=== PATIENT | male | born 1960 | race Caucasian/White ===

== ENCOUNTER 2017-10-06 18:18 | Inpatient (IN) | payer MEDICAID ==
[~2017-10-06] VITALS: Ht 182.9 cm; Wt 67.3 kg
[~2017-10-06 18:18] MED LIST: NO HOME MEDS
[2017-10-06] MEDS ORDERED: ondansetron/PF 4mg/2ml inj IV ONE (18:30)
[2017-10-06] MEDS ORDERED: normal saline 1000ML IV soln IVB ONE (18:30)
[2017-10-06] MEDS ORDERED: morphine 4 MG/ML inj SYRINge IV ONE (18:35)
[2017-10-06 18:49] LABS: BASOPHILS % (AUTO) 0.1 % (0-1); EOSINOPHILS % (AUTO) 0 % (0-6); HEMATOCRIT 39.2 % (42.0-52.0); HEMOGLOBIN 13.6 g/dl (14.0-17.9); LYMPHOCYTES # (AUTO) 0.9 X10'3 (1.1-4.8); LYMPHOCYTES % (AUTO) 3.7 % (21-51); MEAN CORPUSCULAR HEMOGLOBIN 31.4 PG (27.0-31.0); MEAN CORPUSCULAR HGB CONC 34.6 % (33.0-36.5); MEAN CORPUSCULAR VOLUME 90.8 FL (78-98); MONOCYTES % (AUTO) 4.4 % (2-12); NEUTROPHILS # (AUTO) 21.2 X10'3 (1.8-7.7); NEUTROPHILS % (AUTO) 91.8 % (42-75); PLATELET COUNT 178 X10'3 (140-440); RED BLOOD COUNT 4.32 X10'6 (4.70-6.10); RED CELL DISTRIBUTION WIDTH 14.2 % (11.5-14.5); WHITE BLOOD COUNT 23.1 X10'3 (4.5-11.0)
[2017-10-06 19:04] LABS: ALANINE AMINOTRANSFERASE 79 U/L (12-78); ALBUMIN 3.1 G/DL (3.4-5.0); ALBUMIN/GLOBULIN RATIO 0.9 (1.1-1.5); ALKALINE PHOSPHATASE 58 IU/L (46-116); ANION GAP 5 (8-16); ASPARTATE AMINO TRANSFERASE 38 U/L (10-37); BILIRUBIN,TOTAL 0.6 MG/DL (0.1-1.0); BLOOD UREA NITROGEN 16 MG/DL (7-18); BUN/CREATININE RATIO 17.2 (5.4-32.0); CALCIUM 8.4 MG/DL (8.5-10.1); CHLORIDE 101 MMOL/L (99-107); CREATININE 0.93 MG/DL (0.60-1.10); GLUCOSE 100 MG/DL (70-104); LIPASE 72 U/L (73-393); POTASSIUM 4.2 MMOL/L (3.5-5.1); SODIUM 133 MMOL/L (135-145); TOTAL CARBON DIOXIDE 27.1 MMOL/L (24-32); TOTAL PROTEIN 6.7 G/DL (6.4-8.2); eGFR 84 ML/MIN
[2017-10-06] MEDS ORDERED: normal saline 1000ML IV soln IV ONE (19:10)
[2017-10-06] MEDS ORDERED: piperacillin/tazo 3.375gm/50ml 50 ML IV ONE (19:10)
[2017-10-06] MEDS ORDERED: vancomycin/NS 1 GM ADD-VANTAGE 250 ML IV ONE (19:10)
[2017-10-06 19:12] LABS: BANDS% (MANUAL) 2 % (0-10); LARGE PLATELETS FEW; LYMPHOCYTES % (MANUAL) 4 % (21-51); MONOCYTES % (MANUAL) 4 % (2-12); NEUTROPHILS % (MANUAL) 90 % (42-75); PLATELET ESTIMATE NORMAL; TOTAL CELLS COUNTED 100; TOXIC GRANULATION 2+
[2017-10-06 19:13] LABS: TOXIC VACUOLATION FEW
[2017-10-06 20:05] LABS: CLARITY,URINE CLEAR (Clear); COLOR,URINE YELLOW (Yellow); GLUCOSE, URINE NEGATIVE (Neg); KETONES,URINE NEGATIVE (Neg); LEUKOCYTE ESTERASE ,URINE NEGATIVE (Neg); NITRITES, URINE NEGATIVE (Neg); OCCULT BLOOD,URINE NEGATIVE (Neg); PROTEIN,URINE NEGATIVE (Neg); UROBILINOGEN,URINE 0.2 E.U/dL (0.2-1.0)
[2017-10-06 20:18] LABS: UA COLLECTION TYPE CLN CATCH MIDSTREAM
[2017-10-06] MEDS ORDERED: acetaminophen 325mg tablet PO STA (20:23)
[2017-10-06] MEDS: normal saline 500ml IV soln 1,000 ML IV SCH ×4 (20:59→23:50)
[2017-10-06] MEDS: NORepinephrine 8mg/ 250ml NS 250 ML IV SCH ×2 (21:25→21:53)
[2017-10-06] MEDS ORDERED: NORepinephrine 8mg/ 250ml NS 250 ML IV PRN (21:47)
[2017-10-06] MEDS ORDERED: morphine 4 MG/ML inj SYRINge IV PRN (21:50)
[2017-10-06] MEDS ORDERED: potassium Cl 40MEQ/NS 500ml 500 ML IV PRN ×2 (21:50)
[2017-10-06] MEDS: K, MAG and/or Phos replacement - Verify level? MC SCH (21:50)
[2017-10-06] MEDS ORDERED: potassium Cl 20 mEq SR tablet PO PRN ×2 (21:50)
[2017-10-06] MEDS ORDERED: acetaminophen 325mg tablet PO PRN (21:50)
[2017-10-06] MEDS: normal saline 1000ml 1,000 ML IV SCH ×2 (22:07→22:49)
[2017-10-06] MEDS ORDERED: vancomycin/NS 1 GM ADD-VANTAGE 250 ML X 1 DOSE IV ONE (22:10)
[2017-10-06] MEDS ORDERED: vancomycin/NS 1 GM ADD-VANTAGE 250 ML X 1 DOSE IV SCH (22:12)
[2017-10-06 22:15] LABS: INR 1.1 INR; PARTIAL THROMBOPLASTIN TIME 32 SECONDS (22-32); PROTHROMBIN TIME 11.5 SECONDS (9.0-12.0)
[2017-10-06] MEDS: morphine 4 MG/ML inj SYRINge IV PRN (23:12)
[2017-10-07] VITALS (24 sets, daily range): BP systolic 84–115; BP diastolic 43–80
[2017-10-07 00:31] LABS: OXYGEN SATURATION (MIXED VEN) 70.7 % (60-80); PO2 MIXED VENOUS (TEMP COR) 39.5 mmHg (35-46)
[2017-10-07] MEDS: normal saline 500ml IV soln 1,000 ML IV SCH ×2 (00:50→01:50)
[2017-10-07] MEDS: normal saline 1000ml 1,000 ML IV SCH (01:02)
[2017-10-07] MEDS ORDERED: piperacillin/tazo 3.375gm/50ml 50 ML IV ONE (02:55)
[2017-10-07] MEDS: piperacillin/tazo 3.375gm/50ml 50 ML IV SCH ×4 (03:04→19:49)
[2017-10-07] MEDS ORDERED: vancomycin/NS 1 GM ADD-VANTAGE 250 ML X 1 DOSE IV SCH (04:00)
[2017-10-07 04:06] LABS: BASOPHILS % (AUTO) 0.2 % (0-1); EOSINOPHILS % (AUTO) 0 % (0-6); HEMATOCRIT 36.4 % (42.0-52.0); HEMOGLOBIN 12.5 g/dl (14.0-17.9); LYMPHOCYTES # (AUTO) 1.8 X10'3 (1.1-4.8); LYMPHOCYTES % (AUTO) 9.7 % (21-51); MEAN CORPUSCULAR HEMOGLOBIN 31.3 PG (27.0-31.0); MEAN CORPUSCULAR HGB CONC 34.4 % (33.0-36.5); MEAN CORPUSCULAR VOLUME 91.1 FL (78-98); MEAN PLATELET VOLUME 8.8 FL (7.4-10.4); MONOCYTES # (AUTO) 1.1 X10'3 (0-0.9); MONOCYTES % (AUTO) 6.2 % (2-12); NEUTROPHILS # (AUTO) 15.4 X10'3 (1.8-7.7); NEUTROPHILS % (AUTO) 83.9 % (42-75); PLATELET COUNT 166 X10'3 (140-440); RED BLOOD COUNT 3.99 X10'6 (4.70-6.10); RED CELL DISTRIBUTION WIDTH 14.5 % (11.5-14.5); WHITE BLOOD COUNT 18.3 X10'3 (4.5-11.0)
[2017-10-07 04:22] LABS: ALANINE AMINOTRANSFERASE 65 U/L (12-78); ALBUMIN 2.4 G/DL (3.4-5.0); ALBUMIN/GLOBULIN RATIO 0.8 (1.1-1.5); ALKALINE PHOSPHATASE 49 IU/L (46-116); ANION GAP 7 (8-16); ASPARTATE AMINO TRANSFERASE 32 U/L (10-37); BILIRUBIN,TOTAL 0.5 MG/DL (0.1-1.0); BLOOD UREA NITROGEN 12 MG/DL (7-18); CALCIUM 6.9 MG/DL (8.5-10.1); CHLORIDE 108 MMOL/L (99-107); CREATININE 0.75 MG/DL (0.60-1.10); GLUCOSE 104 MG/DL (70-104); POTASSIUM 3.9 MMOL/L (3.5-5.1); SODIUM 137 MMOL/L (135-145); TOTAL CARBON DIOXIDE 21.6 MMOL/L (24-32); TOTAL PROTEIN 5.5 G/DL (6.4-8.2); TROPONIN I 0.05 NG/ML (0.0-0.05); eGFR > 90 ML/MIN
[2017-10-07] MEDS: diatr meglu/diatrizoate 30ml oral sol.-(3 dose) bottle PO SCH ×3 (06:57→12:52)
[2017-10-07] MEDS: acetaminophen 325mg tablet PO PRN ×2 (07:11→18:55)
[2017-10-07] MEDS: ondansetron/PF 4mg/2ml inj IV PRN ×2 (07:11→16:18)
[2017-10-07] MEDS: pantoprazole 40 MG vial IV SCH (07:11)
[2017-10-07] MEDS: enoxaparin 40mg/0.4ml syringe SUBCUT SCH (07:12)
[2017-10-07] MEDS: K, MAG and/or Phos replacement - Verify level? MC SCH (08:28)
[2017-10-07] MEDS ORDERED: total parenteral nutrition 1 EACH, calcium gluconate 12 MEQ, magnesium 16 MEQ, sodium 8... IV SCH ×14 (09:25)
[2017-10-07] MEDS: sodium bicarbonate (8.4%) inj. 50 MEQ in sodium chloride 0.45% 1,000 ML IV SCH ×3 (11:32→23:26)
[2017-10-07] MEDS: vancomycin/NS 1 GM ADD-VANTAGE 250 ML IV SCH ×2 (15:37→23:26)
[2017-10-07] MEDS ORDERED: Dextrose 10%-water IV solution 1,000 ML IV PRN (15:47)
[2017-10-07] MEDS ORDERED: magnesium 4gm in 100ml NS 100 ML IV PRN (15:50)
[2017-10-07] MEDS ORDERED: magnesium 2GM in 50ml NS 50 ML IV PRN (15:50)
[2017-10-07] MEDS: DOPamine 400mg/D5W 250ml 250 ML IV SCH (16:12)
[2017-10-07 16:42] LABS: ALANINE AMINOTRANSFERASE 66 U/L (12-78); ALBUMIN 2.6 G/DL (3.4-5.0); ALBUMIN/GLOBULIN RATIO 0.8 (1.1-1.5); ALKALINE PHOSPHATASE 48 IU/L (46-116); ANION GAP 7 (8-16); ASPARTATE AMINO TRANSFERASE 35 U/L (10-37); BILIRUBIN,TOTAL 0.5 MG/DL (0.1-1.0); BLOOD UREA NITROGEN 9 MG/DL (7-18); BUN/CREATININE RATIO 12.3 (5.4-32.0); CALCIUM 7.7 MG/DL (8.5-10.1); CHLORIDE 108 MMOL/L (99-107); CREATININE 0.73 MG/DL (0.60-1.10); GLUCOSE 85 MG/DL (70-104); MAGNESIUM 1.8 MG/DL (1.5-2.4); PHOSPHORUS 2.4 MG/DL (2.3-4.5); PREALBUMIN 12.4 MG/DL (19-36); SODIUM 139 MMOL/L (135-145); TOTAL CARBON DIOXIDE 23.6 MMOL/L (24-32); TRIGLYCERIDES 50 MG/DL (20-135); TROPONIN I < 0.04 NG/ML (0.0-0.05); eGFR > 90 ML/MIN
[2017-10-07] MEDS: lactobacillus rhamnosus 10,000 MMU CELLS/CAPSULE PO SCH (19:48)
[2017-10-07] MEDS: fat emulsion IV 100 ML, MVI, adult No.4 with vit. K 5 ML, Trace element-5 inj. 0.5 ML i... IV SCH ×4 (19:54)
[2017-10-07 23:03] LABS: URINE AMPHETAMINE SCREEN POSITIVE (Neg); URINE BARBITUATE SCREEN NEGATIVE (Neg); URINE BENZODIAZEPINES SCREEN NEGATIVE (Neg); URINE CANNABINOID SCREEN NEGATIVE (Neg); URINE COCAINE SCREEN NEGATIVE (Neg); URINE METHADONE SCREEN NEGATIVE (Neg); URINE OPIATE SCREEN NEGATIVE (Neg); URINE PHENCYCLIDINE SCREEN NEGATIVE (Neg)
[2017-10-07] MEDS ORDERED: SUMAtriptan 25 MG tablet PO ONE (23:55)
[2017-10-08] VITALS (24 sets, daily range): BP systolic 82–109; BP diastolic 43–67
[2017-10-08] MEDS: piperacillin/tazo 3.375gm/50ml 50 ML IV SCH ×4 (01:30→19:58)
[2017-10-08 03:08] LABS: BASOPHILS # (AUTO) 0.1 X10'3 (0-0.2); BASOPHILS % (AUTO) 0.6 % (0-1); EOSINOPHILS # (AUTO) 0.8 X10'3 (0-0.9); HEMATOCRIT 37.3 % (42.0-52.0); HEMOGLOBIN 12.9 g/dl (14.0-17.9); LYMPHOCYTES # (AUTO) 1.2 X10'3 (1.1-4.8); LYMPHOCYTES % (AUTO) 10.3 % (21-51); MEAN CORPUSCULAR HEMOGLOBIN 31.5 PG (27.0-31.0); MEAN CORPUSCULAR HGB CONC 34.7 % (33.0-36.5); MEAN CORPUSCULAR VOLUME 90.8 FL (78-98); MEAN PLATELET VOLUME 8.9 FL (7.4-10.4); MONOCYTES # (AUTO) 1.2 X10'3 (0-0.9); MONOCYTES % (AUTO) 10.9 % (2-12); NEUTROPHILS # (AUTO) 8.1 X10'3 (1.8-7.7); NEUTROPHILS % (AUTO) 71.2 % (42-75); PLATELET COUNT 144 X10'3 (140-440); RED BLOOD COUNT 4.11 X10'6 (4.70-6.10); RED CELL DISTRIBUTION WIDTH 14.3 % (11.5-14.5); WHITE BLOOD COUNT 11.4 X10'3 (4.5-11.0)
[2017-10-08] MEDS ORDERED: SUMAtriptan 25 MG tablet PO ONE ×2 (03:10→20:05)
[2017-10-08 03:30] LABS: ALANINE AMINOTRANSFERASE 63 U/L (12-78); ALBUMIN 2.7 G/DL (3.4-5.0); ALBUMIN/GLOBULIN RATIO 0.8 (1.1-1.5); ALKALINE PHOSPHATASE 48 IU/L (46-116); ANION GAP 7 (8-16); ASPARTATE AMINO TRANSFERASE 37 U/L (10-37); BILIRUBIN,TOTAL 0.6 MG/DL (0.1-1.0); BLOOD UREA NITROGEN 10 MG/DL (7-18); CALCIUM 7.7 MG/DL (8.5-10.1); CHLORIDE 107 MMOL/L (99-107); CREATININE 0.77 MG/DL (0.60-1.10); GLUCOSE 118 MG/DL (70-104); MAGNESIUM 1.8 MG/DL (1.5-2.4); PHOSPHORUS 2.4 MG/DL (2.3-4.5); POTASSIUM 3.7 MMOL/L (3.5-5.1); SODIUM 139 MMOL/L (135-145); TOTAL CARBON DIOXIDE 24.8 MMOL/L (24-32); TOTAL PROTEIN 6.2 G/DL (6.4-8.2); eGFR > 90 ML/MIN
[2017-10-08] MEDS: acetaminophen 325mg tablet PO PRN (04:09)
[2017-10-08] MEDS: vancomycin/NS 1 GM ADD-VANTAGE 250 ML IV SCH (06:51)
[2017-10-08] MEDS: DOPamine 400mg/D5W 250ml 250 ML IV SCH (06:51)
[2017-10-08] MEDS: lactobacillus rhamnosus 10,000 MMU CELLS/CAPSULE PO SCH ×2 (07:19→19:58)
[2017-10-08] MEDS: pantoprazole 40 MG vial IV SCH (07:19)
[2017-10-08] MEDS: ondansetron/PF 4mg/2ml inj IV PRN (07:19)
[2017-10-08] MEDS: enoxaparin 40mg/0.4ml syringe SUBCUT SCH (07:20)
[2017-10-08] MEDS: K, MAG and/or Phos replacement - Verify level? MC SCH (07:45)
[2017-10-08] MEDS ORDERED: VANCOMYCIN LEVEL IV NR (14:30)
[2017-10-08] MEDS: vancomycin inj 1,250 MG in normal saline 250ml IV soln 250 ML IV SCH (16:29)
[2017-10-08] MEDS: morphine 4 MG/ML inj SYRINge IV PRN (19:58)
[2017-10-08] MEDS: fat emulsion IV 100 ML, MVI, adult No.4 with vit. K 5 ML, Trace element-5 inj. 0.5 ML i... IV SCH ×4 (19:59)
[2017-10-08] MEDS ORDERED: SUMAtriptan 25 MG tablet PO PRN (20:05)
[2017-10-08] MEDS: NORepinephrine 8mg/ 250ml NS 250 ML IV SCH (21:25)
[2017-10-09] VITALS (30 sets, daily range): BP systolic 91–112; BP diastolic 52–74
[2017-10-09] MEDS: piperacillin/tazo 3.375gm/50ml 50 ML IV SCH ×4 (01:36→20:42)
[2017-10-09 03:59] LABS: BASOPHILS % (AUTO) 0.4 % (0-1); EOSINOPHILS # (AUTO) 0.8 X10'3 (0-0.9); EOSINOPHILS % (AUTO) 10.6 % (0-6); HEMATOCRIT 35.6 % (42.0-52.0); HEMOGLOBIN 12.2 g/dl (14.0-17.9); LYMPHOCYTES # (AUTO) 1.3 X10'3 (1.1-4.8); LYMPHOCYTES % (AUTO) 17.2 % (21-51); MEAN CORPUSCULAR HEMOGLOBIN 31.2 PG (27.0-31.0); MEAN CORPUSCULAR HGB CONC 34.1 % (33.0-36.5); MEAN CORPUSCULAR VOLUME 91.5 FL (78-98); MEAN PLATELET VOLUME 8.7 FL (7.4-10.4); MONOCYTES # (AUTO) 0.7 X10'3 (0-0.9); MONOCYTES % (AUTO) 9.7 % (2-12); NEUTROPHILS # (AUTO) 4.7 X10'3 (1.8-7.7); NEUTROPHILS % (AUTO) 62.1 % (42-75); PLATELET COUNT 154 X10'3 (140-440); RED BLOOD COUNT 3.89 X10'6 (4.70-6.10); RED CELL DISTRIBUTION WIDTH 13.8 % (11.5-14.5); WHITE BLOOD COUNT 7.6 X10'3 (4.5-11.0)
[2017-10-09 04:14] LABS: ALANINE AMINOTRANSFERASE 54 U/L (12-78); ALBUMIN 2.4 G/DL (3.4-5.0); ALBUMIN/GLOBULIN RATIO 0.6 (1.1-1.5); ALKALINE PHOSPHATASE 39 IU/L (46-116); ANION GAP 7 (8-16); ASPARTATE AMINO TRANSFERASE 28 U/L (10-37); BILIRUBIN,TOTAL 0.4 MG/DL (0.1-1.0); BLOOD UREA NITROGEN 12 MG/DL (7-18); BUN/CREATININE RATIO 19.7 (5.4-32.0); CALCIUM 7.9 MG/DL (8.5-10.1); CHLORIDE 109 MMOL/L (99-107); CREATININE 0.61 MG/DL (0.60-1.10); GLUCOSE 124 MG/DL (70-104); PHOSPHORUS 2.4 MG/DL (2.3-4.5); POTASSIUM 3.6 MMOL/L (3.5-5.1); SODIUM 144 MMOL/L (135-145); TOTAL CARBON DIOXIDE 28.2 MMOL/L (24-32); TOTAL PROTEIN 6.1 G/DL (6.4-8.2); eGFR > 90 ML/MIN
[2017-10-09] MEDS: fat emulsion IV 100 ML, MVI, adult No.4 with vit. K 5 ML, Trace element-5 inj. 0.5 ML i... IV SCH ×8 (05:34→18:47)
[2017-10-09] MEDS: DOPamine 400mg/D5W 250ml 250 ML IV SCH (05:34)
[2017-10-09] MEDS: K, MAG and/or Phos replacement - Verify level? MC SCH (08:00)
[2017-10-09] MEDS: lactobacillus rhamnosus 10,000 MMU CELLS/CAPSULE PO SCH ×2 (09:23→20:42)
[2017-10-09] MEDS: pantoprazole 40 MG vial IV SCH (09:23)
[2017-10-09] MEDS: enoxaparin 40mg/0.4ml syringe SUBCUT SCH (09:24)
[2017-10-09] MEDS: vancomycin inj 1,250 MG in normal saline 250ml IV soln 250 ML IV SCH ×5 (10:35→23:31)
[2017-10-09] MEDS ORDERED: VANCOMYCIN LEVEL IV NR (15:30)
[2017-10-09] MEDS ORDERED: ipratropium/albuterol 3ml nebule NEB PRN (23:00)
[2017-10-09] MEDS ORDERED: ipratropium/albuterol 3ml nebule NEB SCH (23:00)
[2017-10-10] VITALS (16 sets, daily range): BP systolic 87–114; BP diastolic 50–80
[2017-10-10] MEDS: piperacillin/tazo 3.375gm/50ml 50 ML IV SCH ×4 (02:00→20:56)
[2017-10-10 02:35] LABS: BASOPHILS % (AUTO) 0.5 % (0-1); EOSINOPHILS % (AUTO) 12.2 % (0-6); HEMATOCRIT 33.9 % (42.0-52.0); HEMOGLOBIN 11.5 g/dl (14.0-17.9); LYMPHOCYTES # (AUTO) 1.5 X10'3 (1.1-4.8); LYMPHOCYTES % (AUTO) 17.5 % (21-51); MEAN CORPUSCULAR HEMOGLOBIN 31.1 PG (27.0-31.0); MEAN CORPUSCULAR HGB CONC 34.1 % (33.0-36.5); MEAN CORPUSCULAR VOLUME 91.1 FL (78-98); MEAN PLATELET VOLUME 8.6 FL (7.4-10.4); MONOCYTES # (AUTO) 0.9 X10'3 (0-0.9); MONOCYTES % (AUTO) 10.9 % (2-12); NEUTROPHILS % (AUTO) 58.9 % (42-75); PLATELET COUNT 166 X10'3 (140-440); RED BLOOD COUNT 3.72 X10'6 (4.70-6.10); WHITE BLOOD COUNT 8.5 X10'3 (4.5-11.0)
[2017-10-10 02:52] LABS: ALANINE AMINOTRANSFERASE 58 U/L (12-78); ALBUMIN 2.4 G/DL (3.4-5.0); ALBUMIN/GLOBULIN RATIO 0.7 (1.1-1.5); ALKALINE PHOSPHATASE 40 IU/L (46-116); ANION GAP 8 (8-16); ASPARTATE AMINO TRANSFERASE 40 U/L (10-37); BILIRUBIN,TOTAL 0.4 MG/DL (0.1-1.0); BLOOD UREA NITROGEN 12 MG/DL (7-18); BUN/CREATININE RATIO 18.5 (5.4-32.0); CALCIUM 7.9 MG/DL (8.5-10.1); CHLORIDE 111 MMOL/L (99-107); CREATININE 0.65 MG/DL (0.60-1.10); GLUCOSE 123 MG/DL (70-104); POTASSIUM 3.6 MMOL/L (3.5-5.1); SODIUM 144 MMOL/L (135-145); TOTAL CARBON DIOXIDE 25.1 MMOL/L (24-32); TOTAL PROTEIN 5.9 G/DL (6.4-8.2); eGFR > 90 ML/MIN
[2017-10-10] MEDS: fat emulsion IV 100 ML, MVI, adult No.4 with vit. K 5 ML, Trace element-5 inj. 0.5 ML i... IV SCH ×4 (06:09)
[2017-10-10] MEDS: K, MAG and/or Phos replacement - Verify level? MC SCH (08:00)
[2017-10-10] MEDS: lactobacillus rhamnosus 10,000 MMU CELLS/CAPSULE PO SCH ×2 (08:21→20:56)
[2017-10-10] MEDS: pantoprazole 40 MG vial IV SCH (08:22)
[2017-10-10] MEDS: enoxaparin 40mg/0.4ml syringe SUBCUT SCH (08:31)
[2017-10-10] MEDS: vancomycin inj 1,250 MG in normal saline 250ml IV soln 250 ML IV SCH ×2 (09:20→17:00)
[2017-10-11] VITALS: BP 93/53
[2017-10-11] MEDS: vancomycin inj 1,250 MG in normal saline 250ml IV soln 250 ML IV SCH ×2 (00:18→10:47)
[2017-10-11] MEDS: piperacillin/tazo 3.375gm/50ml 50 ML IV SCH ×4 (01:58→19:33)
[2017-10-11 05:42] LABS: BASOPHILS # (AUTO) 0.1 X10'3 (0-0.2); BASOPHILS % (AUTO) 0.9 % (0-1); EOSINOPHILS # (AUTO) 1.3 X10'3 (0-0.9); EOSINOPHILS % (AUTO) 13.4 % (0-6); HEMOGLOBIN 12.5 g/dl (14.0-17.9); LYMPHOCYTES # (AUTO) 1.9 X10'3 (1.1-4.8); LYMPHOCYTES % (AUTO) 19.8 % (21-51); MEAN CORPUSCULAR HEMOGLOBIN 31.8 PG (27.0-31.0); MEAN CORPUSCULAR HGB CONC 34.8 % (33.0-36.5); MEAN CORPUSCULAR VOLUME 91.5 FL (78-98); MEAN PLATELET VOLUME 9.4 FL (7.4-10.4); MONOCYTES # (AUTO) 1.1 X10'3 (0-0.9); MONOCYTES % (AUTO) 11.7 % (2-12); NEUTROPHILS # (AUTO) 5.2 X10'3 (1.8-7.7); NEUTROPHILS % (AUTO) 54.2 % (42-75); PLATELET COUNT 191 X10'3 (140-440); RED BLOOD COUNT 3.94 X10'6 (4.70-6.10); RED CELL DISTRIBUTION WIDTH 14.1 % (11.5-14.5); WHITE BLOOD COUNT 9.6 X10'3 (4.5-11.0)
[2017-10-11 06:23] LABS: ALANINE AMINOTRANSFERASE 78 U/L (12-78); ALBUMIN 2.6 G/DL (3.4-5.0); ALBUMIN/GLOBULIN RATIO 0.7 (1.1-1.5); ALKALINE PHOSPHATASE 46 IU/L (46-116); ANION GAP 9 (8-16); ASPARTATE AMINO TRANSFERASE 58 U/L (10-37); BILIRUBIN,TOTAL 0.3 MG/DL (0.1-1.0); BLOOD UREA NITROGEN 11 MG/DL (7-18); BUN/CREATININE RATIO 15.3 (5.4-32.0); CALCIUM 8.2 MG/DL (8.5-10.1); CHLORIDE 110 MMOL/L (99-107); CREATININE 0.72 MG/DL (0.60-1.10); GLUCOSE 94 MG/DL (70-104); POTASSIUM 3.8 MMOL/L (3.5-5.1); SODIUM 142 MMOL/L (135-145); TOTAL CARBON DIOXIDE 23.5 MMOL/L (24-32); TOTAL PROTEIN 6.3 G/DL (6.4-8.2); eGFR > 90 ML/MIN
[2017-10-11 07:26] VITALS: BP 104/45
[2017-10-11] MEDS: K, MAG and/or Phos replacement - Verify level? MC SCH (08:00)
[2017-10-11] MEDS: lactobacillus rhamnosus 10,000 MMU CELLS/CAPSULE PO SCH ×2 (08:25→19:33)
[2017-10-11] MEDS: enoxaparin 40mg/0.4ml syringe SUBCUT SCH (08:26)
[2017-10-11 11:58] VITALS: BP 93/52
[2017-10-11] MEDS ORDERED: morphine 2 MG/ML inj. syringe IV PRN ×2 (15:16)
[2017-10-11 20:00] VITALS: BP 98/61
[2017-10-12] VITALS: BP 104/58
[2017-10-12] MEDS: piperacillin/tazo 3.375gm/50ml 50 ML IV SCH ×3 (02:11→14:00)
[2017-10-12 05:45] LABS: BASOPHILS # (AUTO) 0.1 X10'3 (0-0.2); EOSINOPHILS # (AUTO) 1.6 X10'3 (0-0.9); EOSINOPHILS % (AUTO) 14.5 % (0-6); HEMATOCRIT 38.4 % (42.0-52.0); HEMOGLOBIN 13.3 g/dl (14.0-17.9); LYMPHOCYTES # (AUTO) 2.2 X10'3 (1.1-4.8); LYMPHOCYTES % (AUTO) 19.7 % (21-51); MEAN CORPUSCULAR HEMOGLOBIN 31.4 PG (27.0-31.0); MEAN CORPUSCULAR HGB CONC 34.7 % (33.0-36.5); MEAN CORPUSCULAR VOLUME 90.4 FL (78-98); MEAN PLATELET VOLUME 9.5 FL (7.4-10.4); MONOCYTES # (AUTO) 1.2 X10'3 (0-0.9); MONOCYTES % (AUTO) 10.4 % (2-12); NEUTROPHILS # (AUTO) 6.2 X10'3 (1.8-7.7); NEUTROPHILS % (AUTO) 54.4 % (42-75); PLATELET COUNT 246 X10'3 (140-440); RED BLOOD COUNT 4.25 X10'6 (4.70-6.10); RED CELL DISTRIBUTION WIDTH 14.3 % (11.5-14.5); WHITE BLOOD COUNT 11.4 X10'3 (4.5-11.0)
[2017-10-12 06:09] LABS: ALANINE AMINOTRANSFERASE 81 U/L (12-78); ALBUMIN 2.7 G/DL (3.4-5.0); ALBUMIN/GLOBULIN RATIO 0.7 (1.1-1.5); ALKALINE PHOSPHATASE 52 IU/L (46-116); ANION GAP 9 (8-16); ASPARTATE AMINO TRANSFERASE 50 U/L (10-37); BILIRUBIN,TOTAL 0.3 MG/DL (0.1-1.0); BLOOD UREA NITROGEN 14 MG/DL (7-18); BUN/CREATININE RATIO 16.9 (5.4-32.0); CALCIUM 8.6 MG/DL (8.5-10.1); CHLORIDE 107 MMOL/L (99-107); CREATININE 0.83 MG/DL (0.60-1.10); GLUCOSE 84 MG/DL (70-104); SODIUM 140 MMOL/L (135-145); TOTAL CARBON DIOXIDE 24.1 MMOL/L (24-32); TOTAL PROTEIN 6.8 G/DL (6.4-8.2); eGFR > 90 ML/MIN
[2017-10-12 07:01] VITALS: BP 102/57
[2017-10-12] MEDS: lactobacillus rhamnosus 10,000 MMU CELLS/CAPSULE PO SCH (07:58)
[2017-10-12] MEDS: K, MAG and/or Phos replacement - Verify level? MC SCH (07:59)
[2017-10-12] MEDS: enoxaparin 40mg/0.4ml syringe SUBCUT SCH (07:59)
[2017-10-12 11:56] VITALS: BP 86/51
[2017-10-12] MEDS ORDERED: LEVO500T89 PO (12:41)
== END 2017-10-12 15:15 | disposition home or self-care (01) | DRG 720 ==
LOC: ER 18:18 → ED HOLD 21:47 → CMPBEDREQ 23:56 → CICU 2S 10-07 00:14 → MED 3N 10-10 16:48
PROVIDERS: ADMIT Internal Medicine Critical Care Medicine; ATTEND Internal Medicine
PROC: 02HV33Z Insertion of Infusion Device into Superior Vena Cava, Percutaneous Approach (ICD-10-PCS; principal; 2017-10-06)
PROC: B548ZZA Ultrasonography of Superior Vena Cava, Guidance (ICD-10-PCS; 2017-10-06)
DX: A41.9 Sepsis, unspecified organism (principal); J15.9 Unspecified bacterial pneumonia; I95.9 Hypotension, unspecified; J44.9 Chronic obstructive pulmonary disease, unspecified; K52.9 Noninfective gastroenteritis and colitis, unspecified; E86.0 Dehydration; F12.90 Cannabis use, unspecified, uncomplicated; F15.10 Other stimulant abuse, uncomplicated; F17.210 Nicotine dependence, cigarettes, uncomplicated; J44.0 Chronic obstructive pulmonary disease with (acute) lower respiratory infection; K59.00 Constipation, unspecified; Z87.442 Personal history of urinary calculi; Z90.49 Acquired absence of other specified parts of digestive tract; Z80.9 Family history of malignant neoplasm, unspecified; Z86.14 Personal history of Methicillin resistant Staphylococcus aureus infection; Z56.0 Unemployment, unspecified
CPT/HCPCS: 36415; 36556; 71045; 74176; 80053; 80202; 80305; 81003; 82810; 82948; 83605; 83690; 83735; 84100; 84134; 84145; 84478; 84484; 85025; 85610; 85730; 87040; 87070; 87502; 87503; 93005; 93306; 94640; 94760; 96361; 96365; 96375; 99291; A4315; C1751; C1758; C9113; J1265; J1650; J2270; J2405; J2543; J3370; J7030; Q9963

== ENCOUNTER 2018-01-06 17:07 | Emergency (ER) | payer MEDICAID ==
[~2018-01-06] VITALS: Ht 185.4 cm; Wt 53.6 kg
[2018-01-06 17:20] VITALS: BP 112/74
[2018-01-06 18:03] LABS: BASOPHILS % (AUTO) 0 % (0-1); EOSINOPHILS # (AUTO) 0.3 X10'3 (0-0.9); EOSINOPHILS % (AUTO) 1.6 % (0-6); HEMATOCRIT 49.1 % (42.0-52.0); HEMOGLOBIN 16.4 g/dl (14.0-17.9); LYMPHOCYTES # (AUTO) 0.8 X10'3 (1.1-4.8); LYMPHOCYTES % (AUTO) 4.3 % (21-51); MEAN CORPUSCULAR HEMOGLOBIN 30.4 PG (27.0-31.0); MEAN CORPUSCULAR HGB CONC 33.5 % (33.0-36.5); MEAN CORPUSCULAR VOLUME 90.8 FL (78-98); MEAN PLATELET VOLUME 8.1 FL (7.4-10.4); MONOCYTES # (AUTO) 0.8 X10'3 (0-0.9); MONOCYTES % (AUTO) 4.3 % (2-12); NEUTROPHILS # (AUTO) 16.3 X10'3 (1.8-7.7); NEUTROPHILS % (AUTO) 89.8 % (42-75); PLATELET COUNT 251 X10'3 (140-440); RED BLOOD COUNT 5.41 X10'6 (4.70-6.10); RED CELL DISTRIBUTION WIDTH 14.7 % (11.5-14.5); WHITE BLOOD COUNT 18.1 X10'3 (4.5-11.0)
[2018-01-06 18:16] LABS: PARTIAL THROMBOPLASTIN TIME 29 SECONDS (22-32); PROTHROMBIN TIME 10.2 SECONDS (9.0-12.0)
[2018-01-06 18:30] LABS: ALANINE AMINOTRANSFERASE 56 U/L (12-78); ALBUMIN 4.6 G/DL (3.4-5.0); ALBUMIN/GLOBULIN RATIO 0.9 (1.1-1.5); ALKALINE PHOSPHATASE 89 IU/L (46-116); ANION GAP 10 (8-16); ASPARTATE AMINO TRANSFERASE 30 U/L (10-37); BILIRUBIN,TOTAL 0.6 MG/DL (0.1-1.0); BLOOD UREA NITROGEN 16 MG/DL (7-18); BUN/CREATININE RATIO 17.2 (5.4-32.0); CALCIUM 9.9 MG/DL (8.5-10.1); CHLORIDE 99 MMOL/L (99-107); CREATININE 0.93 MG/DL (0.60-1.10); SODIUM 137 MMOL/L (135-145); TOTAL CARBON DIOXIDE 28.5 MMOL/L (24-32); TOTAL PROTEIN 9.7 G/DL (6.4-8.2); eGFR 84 ML/MIN
[2018-01-06 18:37] LABS: GLUCOSE 94 MG/DL (70-104)
== END 2018-01-06 20:21 | disposition left against medical advice (07) ==
LOC: ER 17:07
DX: R07.0 Pain in throat (principal); R53.1 Weakness; R79.1 Abnormal coagulation profile; Z53.21 Procedure and treatment not carried out due to patient leaving prior to being seen by health care provider
CPT/HCPCS: 36415; 71045; 80053; 83605; 84145; 85025; 85610; 85730; 87040; 93005

== ENCOUNTER 2018-04-25 06:22 | Emergency (ER) | payer MEDICAID ==
[~2018-04-25] VITALS: Ht 182.9 cm; Wt 59.1 kg
[2018-04-25 06:31] VITALS: BP 126/77
[2018-04-25] MEDS ORDERED: TETanus/Pertussis (Acell)/Diphther VAC/PF (Tdap-Adult) 0.5ml syringe IM ONE (06:45)
[2018-04-25] MEDS ORDERED: LIDOcaine 1.5% w/epinephrine 1:200,000 5ml ampul IJ ONE (06:45)
== END 2018-04-25 08:00 | disposition home or self-care (01) ==
LOC: ER 06:22
DX: S61.411A Laceration without foreign body of right hand, initial encounter (principal); J44.9 Chronic obstructive pulmonary disease, unspecified; F12.90 Cannabis use, unspecified, uncomplicated; F15.90 Other stimulant use, unspecified, uncomplicated; Z56.0 Unemployment, unspecified; Z90.49 Acquired absence of other specified parts of digestive tract; W25.XXXA Contact with sharp glass, initial encounter; Y93.89 Activity, other specified; Y92.89 Other specified places as the place of occurrence of the external cause; Y99.9 Unspecified external cause status
CPT/HCPCS: 12001; 73130; 90471; 90715; 99284; A6449; J3490

== ENCOUNTER 2019-01-30 15:52 | Emergency (ER) | payer MEDICAID ==
[~2019-01-30] VITALS: Ht 182.9 cm; Wt 63.6 kg
[2019-01-30 16:15] VITALS: BP 117/79
[2019-01-30] MEDS ORDERED: LIDOcaine 1% w/epiNEPHrine 1:200,000 30ml vial IM ONE (16:50)
[2019-01-30] MEDS ORDERED: SULF1TAB49 PO (17:42)
== END 2019-01-30 17:59 | disposition home or self-care (01) ==
LOC: ER 15:52
DX: L02.31 Cutaneous abscess of buttock (principal); J44.9 Chronic obstructive pulmonary disease, unspecified; Z86.14 Personal history of Methicillin resistant Staphylococcus aureus infection; F12.90 Cannabis use, unspecified, uncomplicated; F15.90 Other stimulant use, unspecified, uncomplicated; Z90.49 Acquired absence of other specified parts of digestive tract; F17.200 Nicotine dependence, unspecified, uncomplicated; Z79.899 Other long term (current) drug therapy; Z56.0 Unemployment, unspecified
CPT/HCPCS: 10060; 99283

== ENCOUNTER 2019-04-08 01:57 | Emergency (ER) | payer MEDICAID ==
[~2019-04-08] VITALS: Ht 182.9 cm; Wt 54.0 kg
[2019-04-08 02:41] LABS: BASOPHILS % (AUTO) 0.5 % (0-1); EOSINOPHILS # (AUTO) 0.5 X10'3 (0-0.9); EOSINOPHILS % (AUTO) 6.8 % (0-6); HEMATOCRIT 46.7 % (42.0-52.0); HEMOGLOBIN 16.1 g/dl (14.0-17.9); LYMPHOCYTES % (AUTO) 26.9 % (21-51); MEAN CORPUSCULAR HEMOGLOBIN 32.2 PG (27.0-31.0); MEAN CORPUSCULAR HGB CONC 34.5 g/dL (33.0-36.5); MEAN CORPUSCULAR VOLUME 93.2 FL (78-98); MEAN PLATELET VOLUME 9.1 FL (7.4-10.4); MONOCYTES # (AUTO) 0.8 X10'3 (0-0.9); MONOCYTES % (AUTO) 10.1 % (2-12); NEUTROPHILS # (AUTO) 4.2 X10'3 (1.8-7.7); NEUTROPHILS % (AUTO) 55.7 % (42-75); PLATELET COUNT 186 X10'3 (140-440); RED BLOOD COUNT 5.01 X10'6 (4.70-6.10); RED CELL DISTRIBUTION WIDTH 13.6 % (11.5-14.5); WHITE BLOOD COUNT 7.6 X10'3 (4.5-11.0)
[2019-04-08 02:44] LABS: ALANINE AMINOTRANSFERASE 14 U/L (12-78); ALBUMIN 3.5 G/DL (3.4-5.0); ALBUMIN/GLOBULIN RATIO 0.9 (1.1-1.5); ALKALINE PHOSPHATASE 64 IU/L (46-116); ANION GAP 10 (8-16); ASPARTATE AMINO TRANSFERASE 7 U/L (10-37); BILIRUBIN,TOTAL 0.4 MG/DL (0.1-1.0); BLOOD UREA NITROGEN 17 MG/DL (7-18); BUN/CREATININE RATIO 19.1 (5.4-32.0); CALCIUM 8.8 MG/DL (8.5-10.1); CHLORIDE 104 MMOL/L (99-107); CREATININE 0.89 MG/DL (0.60-1.10); GLUCOSE 88 MG/DL (70-104); POTASSIUM 3.8 MMOL/L (3.5-5.1); SODIUM 140 MMOL/L (135-145); TOTAL PROTEIN 7.4 G/DL (6.4-8.2); eGFR 88 ML/MIN
[2019-04-08] MEDS ORDERED: ONDA8TAB6 PO (03:28)
[2019-04-08] MEDS ORDERED: PANT-47 PO (03:28)
[2019-04-08] MEDS ORDERED: famotidine/PF 10 mg/ml inj IV ONE (03:30)
[2019-04-08] MEDS ORDERED: metoclopramide 5 mg/ml inj IV ONE (03:30)
[2019-04-08] MEDS ORDERED: ketorolac trometh. 30mg/ml inj. IV ONE (03:30)
[2019-04-08] MEDS ORDERED: pantoprazole 40 MG vial IV ONE (03:30)
[2019-04-08 04:49] VITALS: BP 120/74
== END 2019-04-08 04:50 | disposition home or self-care (01) ==
LOC: ER 01:58
DX: K52.9 Noninfective gastroenteritis and colitis, unspecified (principal); J44.9 Chronic obstructive pulmonary disease, unspecified; F12.90 Cannabis use, unspecified, uncomplicated; F15.90 Other stimulant use, unspecified, uncomplicated; F10.99 Alcohol use, unspecified with unspecified alcohol-induced disorder; Z87.442 Personal history of urinary calculi; Z86.14 Personal history of Methicillin resistant Staphylococcus aureus infection; Z90.49 Acquired absence of other specified parts of digestive tract; Z56.0 Unemployment, unspecified; Z79.899 Other long term (current) drug therapy; Y90.9 Presence of alcohol in blood, level not specified
CPT/HCPCS: 36415; 80053; 85025; 85610; 96374; 96375; 99283; C9113; J1885; J2765; J3490

== ENCOUNTER 2019-06-06 19:43 | Inpatient (IN) | payer MEDICAID ==
[~2019-06-06] VITALS: Ht 182.9 cm; Wt 63.6 kg
[~2019-06-06 19:43] MED LIST changes: +ONDA8TAB6 PO; +PANT-47 PO
[2019-06-06] MEDS ORDERED: acetaminophen 325mg tablet PO STA (20:03)
--- NOTE | 2019-06-06 21:30 | NUR ---
Patient is with Dr. Wills.
[2019-06-06] MEDS ORDERED: normal saline 1000ML IV soln IV ONE (21:35)
[2019-06-06] MEDS ORDERED: vancomycin/NS 1 GM ADD-VANTAGE 250 ML IV ONE (21:35)
[2019-06-06 22:12] LABS: BASOPHILS # (AUTO) 0.1 X10'3 (0-0.2); BASOPHILS % (AUTO) 0.4 % (0-1); EOSINOPHILS # (AUTO) 0.3 X10'3 (0-0.9); HEMATOCRIT 41.9 % (42.0-52.0); HEMOGLOBIN 14.3 g/dl (14.0-17.9); LYMPHOCYTES % (AUTO) 7.8 % (21-51); MEAN CORPUSCULAR HEMOGLOBIN 31.5 PG (27.0-31.0); MEAN CORPUSCULAR HGB CONC 34.1 g/dL (33.0-36.5); MEAN CORPUSCULAR VOLUME 92.3 FL (78-98); MEAN PLATELET VOLUME 8.2 FL (7.4-10.4); MONOCYTES # (AUTO) 0.8 X10'3 (0-0.9); MONOCYTES % (AUTO) 6.2 % (2-12); NEUTROPHILS # (AUTO) 10.7 X10'3 (1.8-7.7); NEUTROPHILS % (AUTO) 83.6 % (42-75); PLATELET COUNT 186 X10'3 (140-440); RED BLOOD COUNT 4.54 X10'6 (4.70-6.10); RED CELL DISTRIBUTION WIDTH 13.7 % (11.5-14.5); WHITE BLOOD COUNT 12.8 X10'3 (4.5-11.0)
[2019-06-06 22:27] LABS: ALANINE AMINOTRANSFERASE 9 U/L (12-78); ALBUMIN 3.9 G/DL (3.4-5.0); ALKALINE PHOSPHATASE 66 IU/L (46-116); ANION GAP 10 (8-16); ASPARTATE AMINO TRANSFERASE 13 U/L (10-37); BILIRUBIN,TOTAL 0.6 MG/DL (0.1-1.0); BLOOD UREA NITROGEN 19 MG/DL (7-18); BUN/CREATININE RATIO 21.3 (5.4-32.0); CALCIUM 8.9 MG/DL (8.5-10.1); CHLORIDE 101 MMOL/L (99-107); CREATININE 0.89 MG/DL (0.60-1.10); GLUCOSE 104 MG/DL (70-104); SODIUM 137 MMOL/L (135-145); TOTAL CARBON DIOXIDE 26.1 MMOL/L (24-32); eGFR 88 ML/MIN
[2019-06-06] MEDS ORDERED: SOFO1TAB3 PO (23:07)
[2019-06-07] VITALS (7 sets, daily range): BP systolic 82–101; BP diastolic 47–64
[2019-06-07] MEDS: normal saline 1000ml 1,000 ML IV SCH ×3 (00:04→10:04)
[2019-06-07] MEDS ORDERED: HYDROcodone/acetaminophen 5mg/325mg tablet PO PRN (00:05)
[2019-06-07] MEDS ORDERED: acetaminophen 325mg tablet PO PRN (00:05)
[2019-06-07] MEDS ORDERED: magnesium hydroxide 30ml (MOM) UD suspension PO PRN (00:05)
[2019-06-07] MEDS ORDERED: mag hydrox/Alum hydrox/simeth 30ml oral suspension PO PRN (00:05)
[2019-06-07] MEDS ORDERED: ondansetron/PF 4mg/2ml inj IV PRN (00:05)
--- NOTE | 2019-06-07 06:42 | NUR ---
Problems reprioritized. Patient report given, questions answered & plan of care reviewed with TABITHA Phillips.
[2019-06-07] MEDS: SOFOSBUVIR VELPATASVIR PO SCH ×2 (08:00→11:50)
[2019-06-07] MEDS: heparin, porcine 5000 units/ml vial SQ SCH ×2 (08:49→19:18)
[2019-06-07] MEDS ORDERED: pneumococcal 23-VAL P-sac vacc 25 mcg/0.5ml vial IMVAC ONE (09:25)
--- NOTE | 2019-06-07 09:58 | NUR ---
Reviewed [facility] Student Nurse assessment, added to areas that needed to be clarified. Agree with modified assessment.
[2019-06-07] MEDS ORDERED: FLU VACC QS 2019-20 (6 MOS UP) 60 MCG/0.5 ML VIAL IMVAC ONE (10:00)
[2019-06-07] MEDS ORDERED: FLU VACC QS2019-20(6MOS UP)/PF 60 MCG/0.5 ML SYRINGE IMVAC ONE (10:30)
[2019-06-07] MEDS: vancomycin/NS 1 GM ADD-VANTAGE 250 ML IV SCH ×2 (10:35→22:48)
[2019-06-07] MEDS ORDERED: FLU VACC QS2019-20 36MOS UP/PF 60 MCG/0.5 ML SYRINGE IMVAC ONE (11:45)
--- NOTE | 2019-06-07 17:25 | NUR ---
Pt had episode of SOB at 1620, 02 96% RA, pt slightly diaphoretic. pt had wet cough and diminished lungs which I did not notice prior. Dr Suazo notified. CXR ordered, Dr Suazo reviewed. IS ordered and patient SL. He began to improve shortly after and is now doing much better, no complaints of sob.
--- NOTE | 2019-06-07 18:57 | NUR ---
Problems reprioritized. Patient report given, questions answered & plan of care reviewed with Damari Wetzel RN.
--- NOTE | 2019-06-07 18:58 | NUR ---
Patient in room [facility] 340. I have received report from KACIE LU and had the opportunity to ask questions and assume patient care.
[2019-06-07] MEDS: lactobacillus rhamnosus 10,000 MMU CELLS/CAPSULE PO SCH (19:15)
[2019-06-07] MEDS ORDERED: normal saline 1000ml 1,000 ML IV SCH (22:40)
[2019-06-08 05:03] LABS: BASOPHILS % (AUTO) 0.4 % (0-1); EOSINOPHILS # (AUTO) 0.3 X10'3 (0-0.9); EOSINOPHILS % (AUTO) 3.5 % (0-6); HEMATOCRIT 40.5 % (42.0-52.0); HEMOGLOBIN 13.7 g/dl (14.0-17.9); MEAN CORPUSCULAR HEMOGLOBIN 31.5 PG (27.0-31.0); MEAN CORPUSCULAR HGB CONC 33.9 g/dL (33.0-36.5); MEAN PLATELET VOLUME 9.3 FL (7.4-10.4); MONOCYTES # (AUTO) 0.8 X10'3 (0-0.9); MONOCYTES % (AUTO) 9.3 % (2-12); NEUTROPHILS # (AUTO) 6.2 X10'3 (1.8-7.7); NEUTROPHILS % (AUTO) 74.8 % (42-75); PLATELET COUNT 165 X10'3 (140-440); RED BLOOD COUNT 4.35 X10'6 (4.70-6.10); RED CELL DISTRIBUTION WIDTH 13.6 % (11.5-14.5); WHITE BLOOD COUNT 8.3 X10'3 (4.5-11.0)
[2019-06-08 05:22] LABS: ALANINE AMINOTRANSFERASE 11 U/L (12-78); ALBUMIN 2.9 G/DL (3.4-5.0); ALBUMIN/GLOBULIN RATIO 0.8 (1.1-1.5); ALKALINE PHOSPHATASE 53 IU/L (46-116); ANION GAP 5 (8-16); ASPARTATE AMINO TRANSFERASE 14 U/L (10-37); BILIRUBIN,TOTAL 0.4 MG/DL (0.1-1.0); BLOOD UREA NITROGEN 13 MG/DL (7-18); BUN/CREATININE RATIO 14.8 (5.4-32.0); CALCIUM 8.3 MG/DL (8.5-10.1); CHLORIDE 107 MMOL/L (99-107); CREATININE 0.88 MG/DL (0.60-1.10); GLUCOSE 83 MG/DL (70-104); POTASSIUM 4.3 MMOL/L (3.5-5.1); SODIUM 137 MMOL/L (135-145); TOTAL CARBON DIOXIDE 25.1 MMOL/L (24-32); TOTAL PROTEIN 6.4 G/DL (6.4-8.2); eGFR 89 ML/MIN
--- NOTE | 2019-06-08 06:30 | NUR ---
Problems reprioritized. Patient report given, questions answered & plan of care reviewed with TR LU.
[2019-06-08 07:21] VITALS: BP 82/47
[2019-06-08] MEDS: SOFOSBUVIR VELPATASVIR PO SCH (08:00)
[2019-06-08] MEDS: lactobacillus rhamnosus 10,000 MMU CELLS/CAPSULE PO SCH (08:41)
[2019-06-08] MEDS: heparin, porcine 5000 units/ml vial SQ SCH (08:42)
[2019-06-08] MEDS ORDERED: VANCOMYCIN LEVEL IV ONE (09:30)
[2019-06-08] MEDS: vancomycin/NS 1 GM ADD-VANTAGE 250 ML IV SCH (10:55)
[2019-06-08 11:00] VITALS: BP 84/54
[2019-06-08] MEDS ORDERED: CEPH500C5 PO (11:41)
--- NOTE | 2019-06-08 13:27 | NUR ---
PATIENT STABLE AND APPROPRIATE FOR DISCHARGE, EDUCATION GIVEN, IV TAKEN OUT, ALL BELONGINGS SENT WITH PATIENT, TAKEN TO LOBBY BY WHEEL CHAIR TO AN AWAITING CAR WHERE THE WILL TAKE PATIENT HOME
--- NOTE | 2019-06-08 17:42 | NUR ---
Student documentation: I have reviewed all interventions, assessments performed and documented by Jacobo GANDARA
[2019-06-09] MEDS ORDERED: HYDR-3965 PO (20:33)
[2019-06-10] MEDS ORDERED: VANCOMYCIN LEVEL IV ONE (08:30)
== END 2019-06-08 13:24 | disposition home or self-care (01) | DRG 383 ==
LOC: ER 19:44 → ED HOLD 06-07 00:09 → SUR 3N 06-07 01:02
PROVIDERS: ADMIT Internal Medicine; ATTEND Internal Medicine
PROC: 3E02340 Introduction of Influenza Vaccine into Muscle, Percutaneous Approach (ICD-10-PCS; principal; 2019-06-07)
PROC: 3E0234Z Introduction of Serum, Toxoid and Vaccine into Muscle, Percutaneous Approach (ICD-10-PCS; 2019-06-07)
DX: L03.116 Cellulitis of left lower limb (principal); B18.2 Chronic viral hepatitis C; F15.10 Other stimulant abuse, uncomplicated; F12.90 Cannabis use, unspecified, uncomplicated; J44.9 Chronic obstructive pulmonary disease, unspecified; Z87.442 Personal history of urinary calculi; Z23 Encounter for immunization; Z87.891 Personal history of nicotine dependence; Z90.49 Acquired absence of other specified parts of digestive tract; Z56.0 Unemployment, unspecified; Z80.9 Family history of malignant neoplasm, unspecified
CPT/HCPCS: 36415; 71045; 73590; 80053; 80202; 83605; 84145; 85025; 87040; 87081; 90732; 96365; 99285; G0378; J1644; J3370; J7030; Q2037

== ENCOUNTER 2019-06-09 18:27 | Emergency (ER) | payer MEDICAID ==
[~2019-06-09] VITALS: Ht 182.9 cm; Wt 62.3 kg
[~2019-06-09 18:27] MED LIST changes: +CEPH500C5 PO; -NO HOME MEDS; -PANT-47 PO; +SOFO1TAB3 PO
[2019-06-09 18:34] VITALS: BP 121/77
[2019-06-09] MEDS ORDERED: HYDROcodone/acetaminophen 5mg/325mg tablet PO ONE (20:05)
[2019-06-09] MEDS ORDERED: HYDR-3965 PO (20:33)
== END 2019-06-09 20:37 | disposition home or self-care (01) ==
LOC: ER 18:28
DX: S20.212A Contusion of left front wall of thorax, initial encounter (principal); J44.9 Chronic obstructive pulmonary disease, unspecified; F12.90 Cannabis use, unspecified, uncomplicated; F15.90 Other stimulant use, unspecified, uncomplicated; Z56.0 Unemployment, unspecified; Z90.49 Acquired absence of other specified parts of digestive tract; Z87.442 Personal history of urinary calculi; Z86.14 Personal history of Methicillin resistant Staphylococcus aureus infection; Z79.899 Other long term (current) drug therapy; Y04.0XXA Assault by unarmed brawl or fight, initial encounter; Y93.89 Activity, other specified; Y92.89 Other specified places as the place of occurrence of the external cause; Y99.9 Unspecified external cause status
CPT/HCPCS: 99284

== ENCOUNTER 2019-06-12 09:59 | Emergency (ER) | payer MEDICAID ==
[~2019-06-12] VITALS: Ht 182.9 cm; Wt 57.7 kg
[~2019-06-12 09:59] MED LIST changes: +HYDR-3965 PO
[2019-06-12] MEDS ORDERED: ondansetron/PF 4mg/2ml inj IV ONE ×2 (10:50→11:45)
--- NOTE | 2019-06-12 10:54 | NUR ---
Pt actively vomiting, started IV, carli labs and obtained verbal order for zofran that was administered.
[2019-06-12 10:59] LABS: BASOPHILS % (AUTO) 0.2 % (0-1); EOSINOPHILS # (AUTO) 0.3 X10'3 (0-0.9); EOSINOPHILS % (AUTO) 2.9 % (0-6); HEMATOCRIT 51.3 % (42.0-52.0); HEMOGLOBIN 17.6 g/dl (14.0-17.9); LYMPHOCYTES # (AUTO) 1.2 X10'3 (1.1-4.8); LYMPHOCYTES % (AUTO) 9.8 % (21-51); MEAN CORPUSCULAR HEMOGLOBIN 31.6 PG (27.0-31.0); MEAN CORPUSCULAR HGB CONC 34.2 g/dL (33.0-36.5); MEAN CORPUSCULAR VOLUME 92.3 FL (78-98); MONOCYTES % (AUTO) 8.5 % (2-12); NEUTROPHILS # (AUTO) 9.4 X10'3 (1.8-7.7); NEUTROPHILS % (AUTO) 78.6 % (42-75); PLATELET COUNT 293 X10'3 (140-440); RED BLOOD COUNT 5.55 X10'6 (4.70-6.10); RED CELL DISTRIBUTION WIDTH 13.5 % (11.5-14.5); WHITE BLOOD COUNT 11.9 X10'3 (4.5-11.0)
[2019-06-12 11:15] LABS: ALANINE AMINOTRANSFERASE 14 U/L (12-78); ALBUMIN 4.3 G/DL (3.4-5.0); ALBUMIN/GLOBULIN RATIO 0.8 (1.1-1.5); ALKALINE PHOSPHATASE 87 IU/L (46-116); AMYLASE 51 U/L (25-115); ANION GAP 11 (8-16); ASPARTATE AMINO TRANSFERASE 19 U/L (10-37); BILIRUBIN,TOTAL 0.6 MG/DL (0.1-1.0); BLOOD UREA NITROGEN 16 MG/DL (7-18); BUN/CREATININE RATIO 17.2 (5.4-32.0); CALCIUM 9.5 MG/DL (8.5-10.1); CHLORIDE 97 MMOL/L (99-107); CREATININE 0.93 MG/DL (0.60-1.10); GLUCOSE 95 MG/DL (70-104); LIPASE 81 U/L (73-393); SODIUM 134 MMOL/L (135-145); TOTAL CARBON DIOXIDE 26.3 MMOL/L (24-32); TOTAL PROTEIN 9.5 G/DL (6.4-8.2); eGFR 83 ML/MIN
[2019-06-12] MEDS ORDERED: pantoprazole 40 MG vial IV ONE (11:45)
[2019-06-12] MEDS ORDERED: normal saline 1000ML IV soln IVB ONE ×2 (11:45)
[2019-06-12] MEDS ORDERED: LORazepam 2 mg/ml vial IV ONE (11:45)
--- NOTE | 2019-06-12 11:53 | NUR ---
Pt to xray
[2019-06-12 13:24] VITALS: BP 102/68
[2019-06-12] MEDS ORDERED: PANT-47 PO (14:28)
[2019-06-12] MEDS ORDERED: ONDA8TAB13 PO (14:28)
== END 2019-06-12 14:44 | disposition home or self-care (01) ==
LOC: ER 10:00
DX: K52.9 Noninfective gastroenteritis and colitis, unspecified (principal); J44.9 Chronic obstructive pulmonary disease, unspecified; F17.200 Nicotine dependence, unspecified, uncomplicated; F12.90 Cannabis use, unspecified, uncomplicated; F15.90 Other stimulant use, unspecified, uncomplicated; Z79.2 Long term (current) use of antibiotics; Z79.899 Other long term (current) drug therapy; Z87.442 Personal history of urinary calculi; Z87.19 Personal history of other diseases of the digestive system; Z86.14 Personal history of Methicillin resistant Staphylococcus aureus infection; Z86.19 Personal history of other infectious and parasitic diseases; Z90.49 Acquired absence of other specified parts of digestive tract; Z56.0 Unemployment, unspecified
CPT/HCPCS: 36415; 71046; 80053; 82150; 83690; 85025; 85610; 96374; 96375; 96376; 99284; C9113; J2060; J2405; J7030; J7040

== ENCOUNTER 2019-06-15 08:56 | Emergency (ER) | payer MEDICAID ==
[~2019-06-15] VITALS: Ht 182.9 cm; Wt 56.7 kg
[~2019-06-15 08:56] MED LIST changes: -HYDR-3965 PO; +ONDA8TAB13 PO; +PANT-47 PO
--- NOTE | 2019-06-15 09:15 | NUR ---
Assumed care of patient. Patient ambulated to room from lobby with steady gait, holding lower abd. Patient provided urine sample, sent to lab.
[2019-06-15 09:28] LABS: CLARITY,URINE SLIGHTLY CLOUDY (Clear); COLOR,URINE YELLOW (Yellow); GLUCOSE, URINE NEGATIVE (Neg); KETONES,URINE NEGATIVE (Neg); LEUKOCYTE ESTERASE ,URINE NEGATIVE (Neg); NITRITES, URINE NEGATIVE (Neg); OCCULT BLOOD,URINE TRACE-INTACT (Neg); PROTEIN,URINE NEGATIVE (Neg); UROBILINOGEN,URINE 0.2 E.U/dL (0.2-1.0)
[2019-06-15 09:35] LABS: UA COLLECTION TYPE CLN CATCH MIDSTREAM
[2019-06-15 09:37] LABS: MUCUS STRANDS MANY /LPF (Neg)
[2019-06-15 09:38] LABS: BASOPHILS % (AUTO) 0.3 % (0-1); EOSINOPHILS # (AUTO) 0.3 X10'3 (0-0.9); EOSINOPHILS % (AUTO) 2.7 % (0-6); HEMATOCRIT 48.5 % (42.0-52.0); HEMOGLOBIN 16.6 g/dl (14.0-17.9); LYMPHOCYTES # (AUTO) 1.7 X10'3 (1.1-4.8); LYMPHOCYTES % (AUTO) 12.7 % (21-51); MEAN CORPUSCULAR HEMOGLOBIN 31.5 PG (27.0-31.0); MEAN CORPUSCULAR HGB CONC 34.2 g/dL (33.0-36.5); MEAN CORPUSCULAR VOLUME 92.2 FL (78-98); MONOCYTES # (AUTO) 1.4 X10'3 (0-0.9); MONOCYTES % (AUTO) 10.6 % (2-12); NEUTROPHILS # (AUTO) 9.6 X10'3 (1.8-7.7); NEUTROPHILS % (AUTO) 73.7 % (42-75); PLATELET COUNT 297 X10'3 (140-440); RED BLOOD COUNT 5.26 X10'6 (4.70-6.10); RED CELL DISTRIBUTION WIDTH 13.2 % (11.5-14.5)
[2019-06-15 09:44] LABS: BACTERIA,URINE NONE SEEN /HPF (Neg); WBC,URINE 0-4 /HPF (0-4)
[2019-06-15 09:45] LABS: TRANSITIONAL EPI CELLS,URINE FEW /HPF
[2019-06-15 09:46] LABS: SQUAMOUS EPITHELIAL CELL,UR FEW /LPF (FEW)
[2019-06-15 09:55] LABS: ALANINE AMINOTRANSFERASE 12 U/L (12-78); ALBUMIN 3.6 G/DL (3.4-5.0); ALBUMIN/GLOBULIN RATIO 0.7 (1.1-1.5); ALKALINE PHOSPHATASE 75 IU/L (46-116); ANION GAP 8 (8-16); ASPARTATE AMINO TRANSFERASE 11 U/L (10-37); BILIRUBIN,TOTAL 0.5 MG/DL (0.1-1.0); BLOOD UREA NITROGEN 14 MG/DL (7-18); BUN/CREATININE RATIO 15.4 (5.4-32.0); CALCIUM 8.9 MG/DL (8.5-10.1); CHLORIDE 100 MMOL/L (99-107); CREATININE 0.91 MG/DL (0.60-1.10); GLUCOSE 100 MG/DL (70-104); POTASSIUM 3.7 MMOL/L (3.5-5.1); SODIUM 135 MMOL/L (135-145); TOTAL CARBON DIOXIDE 27.2 MMOL/L (24-32); TOTAL PROTEIN 8.5 G/DL (6.4-8.2); eGFR 86 ML/MIN
[2019-06-15] MEDS ORDERED: normal saline 1000ML IV soln IVB ONE (10:10)
[2019-06-15] MEDS ORDERED: morphine 4 MG/ML inj SYRINge IV ONE (10:10)
[2019-06-15] MEDS ORDERED: ondansetron/PF 4mg/2ml inj IV ONE (10:10)
--- NOTE | 2019-06-15 10:22 | NUR ---
PT OUT TO CT VIA [facility] WITH CLIENT SERVICE EXECUTIVE
--- NOTE | 2019-06-15 10:34 | NUR ---
pt returns from ct
[2019-06-15 10:47] LABS: LIPASE 88 U/L (73-393)
[2019-06-15 11:28] LABS: URINE AMPHETAMINE SCREEN POSITIVE (Neg); URINE BARBITUATE SCREEN NEGATIVE (Neg); URINE BENZODIAZEPINES SCREEN NEGATIVE (Neg); URINE CANNABINOID SCREEN POSITIVE (Neg); URINE COCAINE SCREEN NEGATIVE (Neg); URINE METHADONE SCREEN NEGATIVE (Neg); URINE OPIATE SCREEN NEGATIVE (Neg); URINE PHENCYCLIDINE SCREEN NEGATIVE (Neg)
--- NOTE | 2019-06-15 11:40 | NUR ---
Patient tolerating PO fluids.
[2019-06-15] MEDS ORDERED: PROM12.512 PO (11:52)
[2019-06-15 12:12] VITALS: BP 94/68
== END 2019-06-15 12:15 | disposition home or self-care (01) ==
LOC: ER 08:57
DX: K56.7 Ileus, unspecified (principal); R11.2 Nausea with vomiting, unspecified; R19.7 Diarrhea, unspecified; J44.9 Chronic obstructive pulmonary disease, unspecified; F12.90 Cannabis use, unspecified, uncomplicated; F15.90 Other stimulant use, unspecified, uncomplicated; Z86.19 Personal history of other infectious and parasitic diseases; Z86.14 Personal history of Methicillin resistant Staphylococcus aureus infection; Z87.442 Personal history of urinary calculi; Z90.49 Acquired absence of other specified parts of digestive tract; Z56.0 Unemployment, unspecified; Z79.899 Other long term (current) drug therapy
CPT/HCPCS: 36415; 74176; 80053; 80305; 81001; 83690; 85025; 96361; 96374; 96375; 99284; J2270; J2405; J7030

== ENCOUNTER 2019-09-17 21:21 | Emergency (ER) | payer MEDICAID ==
[~2019-09-17] VITALS: Ht 182.9 cm; Wt 59.1 kg
[~2019-09-17 21:21] MED LIST changes: -CEPH500C5 PO; +PROM12.512 PO
[2019-09-17] MEDS ORDERED: normal saline 1000ML IV soln IVB ONE ×2 (21:30)
[2019-09-17] MEDS ORDERED: metoclopramide 5 mg/ml inj IV ONE (21:30)
[2019-09-17] MEDS ORDERED: diphenhydrAMINE 50 mg/ml inj IV ONE (21:30)
[2019-09-17] MEDS ORDERED: glycopyrrolate 0.2mg/ml inj IV ONE (21:35)
[2019-09-17 22:03] LABS: BASOPHILS % (AUTO) 0.4 % (0-1); EOSINOPHILS # (AUTO) 0.3 X10'3 (0-0.9); EOSINOPHILS % (AUTO) 4.3 % (0-6); HEMATOCRIT 43.5 % (42.0-52.0); LYMPHOCYTES # (AUTO) 0.9 X10'3 (1.1-4.8); LYMPHOCYTES % (AUTO) 11.1 % (21-51); MEAN CORPUSCULAR HGB CONC 34.4 g/dL (33.0-36.5); MEAN CORPUSCULAR VOLUME 90.1 FL (78-98); MEAN PLATELET VOLUME 8.4 FL (7.4-10.4); MONOCYTES # (AUTO) 0.7 X10'3 (0-0.9); NEUTROPHILS # (AUTO) 5.8 X10'3 (1.8-7.7); NEUTROPHILS % (AUTO) 75.2 % (42-75); PLATELET COUNT 201 X10'3 (140-440); RED BLOOD COUNT 4.82 X10'6 (4.70-6.10); RED CELL DISTRIBUTION WIDTH 13.8 % (11.5-14.5); WHITE BLOOD COUNT 7.7 X10'3 (4.5-11.0)
[2019-09-17 22:12] LABS: ALANINE AMINOTRANSFERASE 13 U/L (12-78); ALBUMIN 3.8 G/DL (3.4-5.0); ALKALINE PHOSPHATASE 75 IU/L (46-116); ANION GAP 8 (8-16); ASPARTATE AMINO TRANSFERASE 14 U/L (10-37); BILIRUBIN,TOTAL 0.3 MG/DL (0.1-1.0); BLOOD UREA NITROGEN 19 MG/DL (7-18); BUN/CREATININE RATIO 19.6 (5.4-32.0); CALCIUM 8.5 MG/DL (8.5-10.1); CHLORIDE 103 MMOL/L (99-107); CREATININE 0.97 MG/DL (0.60-1.10); GLUCOSE 95 MG/DL (70-104); LIPASE 85 U/L (73-393); POTASSIUM 3.8 MMOL/L (3.5-5.1); SODIUM 137 MMOL/L (135-145); TOTAL CARBON DIOXIDE 26.5 MMOL/L (24-32); TOTAL PROTEIN 7.6 G/DL (6.4-8.2); eGFR 79 ML/MIN
[2019-09-17] MEDS ORDERED: LOPE-144 PO (22:53)
[2019-09-17] MEDS ORDERED: ONDA4TAB12 PO (22:53)
[2019-09-17 23:52] VITALS: BP 99/70
[2019-09-18 00:22] LABS: CLARITY,URINE CLEAR (Clear); COLOR,URINE YELLOW (Yellow); GLUCOSE, URINE NEGATIVE (Neg); KETONES,URINE NEGATIVE (Neg); LEUKOCYTE ESTERASE ,URINE NEGATIVE (Neg); NITRITES, URINE NEGATIVE (Neg); OCCULT BLOOD,URINE NEGATIVE (Neg); PROTEIN,URINE NEGATIVE (Neg); UROBILINOGEN,URINE 0.2 E.U/dL (0.2-1.0)
[2019-09-18 00:24] LABS: UA COLLECTION TYPE CLN CATCH MIDSTREAM
== END 2019-09-18 00:07 | disposition home or self-care (01) ==
LOC: ER 21:21
DX: R11.2 Nausea with vomiting, unspecified (principal); R19.7 Diarrhea, unspecified; R07.89 Other chest pain; I10 Essential (primary) hypertension; J44.9 Chronic obstructive pulmonary disease, unspecified; F17.210 Nicotine dependence, cigarettes, uncomplicated; F12.90 Cannabis use, unspecified, uncomplicated; F15.90 Other stimulant use, unspecified, uncomplicated; Z87.442 Personal history of urinary calculi; Z86.14 Personal history of Methicillin resistant Staphylococcus aureus infection; Z86.19 Personal history of other infectious and parasitic diseases; Z90.49 Acquired absence of other specified parts of digestive tract; Z56.0 Unemployment, unspecified; Z79.899 Other long term (current) drug therapy
CPT/HCPCS: 36415; 80053; 81003; 83690; 85025; 96361; 96374; 96375; 99284; J1200; J2765; J7030; J3490

== ENCOUNTER 2021-01-20 09:31 | Emergency (ER) | payer MEDICAID ==
[~2021-01-20] VITALS: Ht 182.9 cm; Wt 59.0 kg
[~2021-01-20 09:31] MED LIST changes: +CEPH-585 PO; +LOPE-144 PO; +ONDA4TAB12 PO
[2021-01-20] MEDS ORDERED: normal saline 1000ML IV soln IV ONE (10:10)
[2021-01-20] MEDS ORDERED: ondansetron/PF 4mg/2ml inj IV ONE (10:10)
[2021-01-20 10:42] LABS: BASOPHILS # (AUTO) 0.1 X10'3 (0-0.2); BASOPHILS % (AUTO) 1.1 % (0-1); EOSINOPHILS # (AUTO) 0.5 X10'3 (0-0.9); EOSINOPHILS % (AUTO) 7.9 % (0-6); HEMATOCRIT 45.5 % (42.0-52.0); HEMOGLOBIN 15.5 g/dl (14.0-17.9); LYMPHOCYTES # (AUTO) 1.3 X10'3 (1.1-4.8); LYMPHOCYTES % (AUTO) 19.1 % (21-51); MEAN CORPUSCULAR HEMOGLOBIN 31.2 PG (27.0-31.0); MEAN CORPUSCULAR VOLUME 91.9 FL (78-98); MEAN PLATELET VOLUME 8.6 FL (7.4-10.4); MONOCYTES # (AUTO) 0.6 X10'3 (0-0.9); MONOCYTES % (AUTO) 8.4 % (2-12); NEUTROPHILS # (AUTO) 4.2 X10'3 (1.8-7.7); NEUTROPHILS % (AUTO) 63.5 % (42-75); PLATELET COUNT 216 X10'3 (140-440); RED BLOOD COUNT 4.96 X10'6 (4.70-6.10); WHITE BLOOD COUNT 6.7 X10'3 (4.5-11.0)
[2021-01-20 11:21] LABS: ALANINE AMINOTRANSFERASE 15 U/L (12-78); ALKALINE PHOSPHATASE 67 IU/L (46-116); ANION GAP 7 (8-16); ASPARTATE AMINO TRANSFERASE 10 U/L (10-37); BILIRUBIN,TOTAL 0.8 MG/DL (0.1-1.0); BLOOD UREA NITROGEN 15 MG/DL (7-18); CHLORIDE 104 MMOL/L (99-107); CREATININE 0.88 MG/DL (0.60-1.10); GLUCOSE 98 MG/DL (70-104); LIPASE 62 U/L (73-393); POTASSIUM 4.6 MMOL/L (3.5-5.1); SODIUM 139 MMOL/L (135-145); eGFR 89 ML/MIN
[2021-01-20] MEDS ORDERED: HYDROcodone/acetaminophen 5mg/325mg tablet PO ONE (12:20)
[2021-01-20] MEDS ORDERED: ketorolac trometh inj. 60 MG/2 ML VIAL IM ONE (12:20)
--- NOTE | 2021-01-20 12:20 | NUR ---
Shalini CARPENTER PA AT BEDSIDE, GAVE VERBAL ORDER TO HOLD IV, GAVE PT LITER WATER TO DRINK, PT AWARE UA NEEDED
[2021-01-20 13:08] VITALS: BP 122/79
== END 2021-01-20 13:09 | disposition home or self-care (01) ==
LOC: ER 09:32
DX: R10.84 Generalized abdominal pain (principal); R11.2 Nausea with vomiting, unspecified; I10 Essential (primary) hypertension; J44.9 Chronic obstructive pulmonary disease, unspecified; F12.90 Cannabis use, unspecified, uncomplicated; F15.90 Other stimulant use, unspecified, uncomplicated; Z86.19 Personal history of other infectious and parasitic diseases; Z87.442 Personal history of urinary calculi; Z86.14 Personal history of Methicillin resistant Staphylococcus aureus infection; Z85.9 Personal history of malignant neoplasm, unspecified; Z90.89 Acquired absence of other organs; Z98.890 Other specified postprocedural states; Z56.0 Unemployment, unspecified; Z79.2 Long term (current) use of antibiotics; Z79.899 Other long term (current) drug therapy
CPT/HCPCS: 36415; 71045; 74176; 80053; 83605; 83690; 84145; 85025; 87040; 93005; 96372; 99285; J1885

== ENCOUNTER 2021-06-06 18:15 | Emergency (ER) | payer MEDICAID ==
[~2021-06-06] VITALS: Ht 182.9 cm; Wt 63.6 kg
[2021-06-06 18:20] VITALS: BP 115/58
[2021-06-06] MEDS ORDERED: CEPH-585 PO (22:12)
[2021-06-06] MEDS ORDERED: SULF1TAB49 PO (22:12)
[2021-06-06] MEDS ORDERED: TRIA15CR61 TOP (22:12)
[2021-06-06] MEDS ORDERED: sulfamethoxazole/trimethoprim DS (800/160mg) tablet PO ONE (22:15)
== END 2021-06-06 22:27 | disposition home or self-care (01) ==
LOC: ER 18:16
DX: L03.115 Cellulitis of right lower limb (principal); M79.671 Pain in right foot; I10 Essential (primary) hypertension; J44.9 Chronic obstructive pulmonary disease, unspecified; F12.90 Cannabis use, unspecified, uncomplicated; F15.90 Other stimulant use, unspecified, uncomplicated; Z86.19 Personal history of other infectious and parasitic diseases; Z87.442 Personal history of urinary calculi; Z86.14 Personal history of Methicillin resistant Staphylococcus aureus infection; Z85.9 Personal history of malignant neoplasm, unspecified; Z90.89 Acquired absence of other organs; Z98.890 Other specified postprocedural states; Z56.0 Unemployment, unspecified; Z79.2 Long term (current) use of antibiotics; Z79.899 Other long term (current) drug therapy
CPT/HCPCS: 99283

== ENCOUNTER 2021-06-09 11:37 | Inpatient (IN) | payer MEDICAID ==
[~2021-06-09] VITALS: Ht 182.9 cm; Wt 63.6 kg
[~2021-06-09 11:37] MED LIST changes: +SULF1TAB49 PO; +TRIA15CR61 TOP
[2021-06-09 12:48] LABS: BASOPHILS # (AUTO) 0.1 X10'3 (0-0.2); EOSINOPHILS # (AUTO) 0.4 X10'3 (0-0.9); EOSINOPHILS % (AUTO) 6.4 % (0-6); HEMOGLOBIN 15.6 g/dl (14.0-17.9); LYMPHOCYTES # (AUTO) 1.2 X10'3 (1.1-4.8); LYMPHOCYTES % (AUTO) 19.2 % (21-51); MEAN CORPUSCULAR HEMOGLOBIN 30.9 PG (27.0-31.0); MEAN CORPUSCULAR HGB CONC 33.9 g/dL (33.0-36.5); MEAN CORPUSCULAR VOLUME 91.1 FL (78-98); MEAN PLATELET VOLUME 8.2 FL (7.4-10.4); MONOCYTES # (AUTO) 0.7 X10'3 (0-0.9); MONOCYTES % (AUTO) 10.9 % (2-12); NEUTROPHILS % (AUTO) 62.5 % (42-75); PLATELET COUNT 281 X10'3 (140-440); RED BLOOD COUNT 5.05 X10'6 (4.70-6.10); RED CELL DISTRIBUTION WIDTH 13.5 % (11.5-14.5); WHITE BLOOD COUNT 6.4 X10'3 (4.5-11.0)
[2021-06-09 13:00] LABS: ANION GAP 9 (8-16); BLOOD UREA NITROGEN 17 MG/DL (7-18); BUN/CREATININE RATIO 20.2 (5.4-32.0); CHLORIDE 101 MMOL/L (99-107); CREATININE 0.84 MG/DL (0.60-1.10); GLUCOSE 88 MG/DL (70-104); POTASSIUM 4.1 MMOL/L (3.5-5.1); SODIUM 139 MMOL/L (135-145); TOTAL CARBON DIOXIDE 28.7 MMOL/L (24-32)
[2021-06-09 13:01] LABS: ALANINE AMINOTRANSFERASE 18 U/L (12-78); ALBUMIN 4.1 G/DL (3.4-5.0); ALBUMIN/GLOBULIN RATIO 0.9 (1.1-1.5); ALKALINE PHOSPHATASE 84 IU/L (46-116); ASPARTATE AMINO TRANSFERASE 13 U/L (10-37); BILIRUBIN,TOTAL 0.4 MG/DL (0.1-1.0); C-REACTIVE PROTEIN 0.17 MG/DL (0.0-0.5); CALCIUM 9.2 MG/DL (8.5-10.1); TOTAL PROTEIN 8.6 G/DL (6.4-8.2); eGFR > 90 ML/MIN
[2021-06-09] MEDS ORDERED: vancomycin/NS 1 GM ADD-VANTAGE 250 ML IV ONE (16:15)
[2021-06-09] MEDS ORDERED: CefTRIAXone 2gm/D5W 50ml BAG 50 ML IV ONE (16:15)
[2021-06-09] MEDS ORDERED: magnesium 4gm in 100ml NS 100 ML IV PRN (16:30)
[2021-06-09] MEDS ORDERED: diphenhydrAMINE 25mg capsule PO PRN (16:30)
[2021-06-09] MEDS ORDERED: potassium Cl 40MEQ/1/2NS 520ml 520 ML IV PRN ×2 (16:30)
[2021-06-09] MEDS ORDERED: acetaminophen 325mg tablet PO PRN ×2 (16:30)
[2021-06-09] MEDS ORDERED: HYDROcodone/acetaminophen 10/325mg tab PO PRN (16:30)
[2021-06-09] MEDS: normal saline 1000ml 1,000 ML IV SCH (16:30)
[2021-06-09] MEDS ORDERED: bisacodyl 10mg suppository rectal RC PRN (16:30)
[2021-06-09] MEDS ORDERED: magnesium Cl slow-release 64mg tablet PO PRN (16:30)
[2021-06-09] MEDS ORDERED: ondansetron/PF 4mg/2ml inj IV PRN (16:30)
[2021-06-09] MEDS ORDERED: mag hydrox/Alum hydrox/simeth 30ml oral suspension PO PRN (16:30)
[2021-06-09] MEDS ORDERED: potassium Cl 20 mEq SR tablet PO PRN ×2 (16:30)
[2021-06-09] MEDS ORDERED: HYDROcodone/acetaminophen 5mg/325mg tablet PO PRN (16:30)
[2021-06-09] MEDS ORDERED: acetaminophen 650mg rectal suppository RC PRN (16:30)
[2021-06-09] MEDS ORDERED: magnesium hydroxide 30ml (MOM) UD suspension PO PRN (16:30)
[2021-06-09] MEDS ORDERED: morphine 2 MG/ML inj. syringe IV PRN ×2 (16:30)
[2021-06-09] MEDS ORDERED: magnesium 2GM in 50ml NS 50 ML IV PRN (16:30)
[2021-06-09 16:56] LABS: HEMOGLOBIN A1C 5.5 % (4.5-6.2)
[2021-06-09] MEDS ORDERED: NO HOME MEDS (17:59)
[2021-06-09] MEDS ORDERED: diphenhydrAMINE 50 mg/ml inj IV ONE (18:10)
[2021-06-09] MEDS ORDERED: GADOTERATE MEGLUMINE 7.5 MMOL/15 ML VIAL IV ONE (18:20)
[2021-06-09] MEDS ORDERED: diphenhydrAMINE 50 mg/ml inj IV PRN (18:30)
--- NOTE | 2021-06-09 18:45 | NUR ---
Pt returned from MRI. Tech stated that pt developed a itchy rash on his torso. Denies sob, lungs clear. Dr. Navarro was notified.
[2021-06-09] MEDS: heparin, porcine 5000 units/ml vial SQ SCH (20:00)
[2021-06-09] MEDS: K and/or MAG REPLACEMENT MC SCH (20:00)
[2021-06-09] MEDS: cetirizine 10mg tablet PO SCH (20:08)
[2021-06-09] MEDS ORDERED: normal saline 1000ml 1,000 ML IV ONE (20:15)
[2021-06-09] MEDS: docusate sod 100mg capsule PO SCH (20:41)
--- NOTE | 2021-06-09 21:49 | NUR ---
Attempted to give report on pt to the Surgical floor. Nurse was not available and will call me back.
[2021-06-09] MEDS: piperacillin/tazo 3.375gm/50ml 50 ML IV SCH ×2 (21:52→23:26)
--- NOTE | 2021-06-09 22:06 | NUR ---
Report given to TABITHA Pittman in the surgical floor.
--- NOTE | 2021-06-09 23:26 | NUR ---
Pt arrived to surgical unit at 2300 today. NS and IV Zosyn (1630 dose) infusing at this time. Advised by PharmD to non-admin 0000 dose and continue next dose as scheduled. Pt oriented to unit, call light within reach and fall precautions initiated. VS stable and pt in no apparent distress at this time. RN to monitor.
[2021-06-10] VITALS: BP 95/61
[2021-06-10 01:38] LABS: CLARITY,URINE CLEAR (Clear); COLOR,URINE YELLOW (Yellow); GLUCOSE, URINE NEGATIVE (Neg); KETONES,URINE NEGATIVE (Neg); LEUKOCYTE ESTERASE ,URINE NEGATIVE (Neg); NITRITES, URINE NEGATIVE (Neg); OCCULT BLOOD,URINE NEGATIVE (Neg); PROTEIN,URINE NEGATIVE (Neg); UA COLLECTION TYPE NON-SPECIFIED; URINE AMPHETAMINE SCREEN POSITIVE (Neg); URINE BARBITUATE SCREEN NEGATIVE (Neg); URINE BENZODIAZEPINES SCREEN NEGATIVE (Neg); URINE CANNABINOID SCREEN NEGATIVE (Neg); URINE COCAINE SCREEN NEGATIVE (Neg); URINE METHADONE SCREEN NEGATIVE (Neg); URINE OPIATE SCREEN NEGATIVE (Neg); URINE PHENCYCLIDINE SCREEN NEGATIVE (Neg); UROBILINOGEN,URINE 0.2 E.U/dL (0.2-1.0)
[2021-06-10] MEDS: normal saline 1000ml 1,000 ML IV SCH ×3 (04:30→16:29)
[2021-06-10] MEDS: vancomycin/NS 1 GM ADD-VANTAGE 250 ML IV SCH ×2 (04:37→16:29)
--- NOTE | 2021-06-10 06:00 | NUR ---
Patient in room [facility] 345. I have received report from TABITHA Villalpando and had the opportunity to ask questions and assume patient care.
[2021-06-10 06:02] LABS: EOSINOPHILS # (AUTO) 0.5 X10'3 (0-0.9); HEMOGLOBIN 14.1 g/dl (14.0-17.9); MEAN CORPUSCULAR VOLUME 90.9 FL (78-98); MEAN PLATELET VOLUME 8.8 FL (7.4-10.4); MONOCYTES # (AUTO) 0.6 X10'3 (0-0.9)
[2021-06-10 06:07] LABS: BASOPHILS % (AUTO) 0.8 % (0-1); EOSINOPHILS % (AUTO) 9.4 % (0-6); HEMATOCRIT 40.8 % (42.0-52.0); LYMPHOCYTES # (AUTO) 1.4 X10'3 (1.1-4.8); LYMPHOCYTES % (AUTO) 24.7 % (21-51); MEAN CORPUSCULAR HEMOGLOBIN 31.4 PG (27.0-31.0); MEAN CORPUSCULAR HGB CONC 34.5 g/dL (33.0-36.5); MONOCYTES % (AUTO) 10.8 % (2-12); NEUTROPHILS % (AUTO) 54.3 % (42-75); PLATELET COUNT 239 X10'3 (140-440); RED BLOOD COUNT 4.49 X10'6 (4.70-6.10); RED CELL DISTRIBUTION WIDTH 13.6 % (11.5-14.5); WHITE BLOOD COUNT 5.5 X10'3 (4.5-11.0)
--- NOTE | 2021-06-10 06:12 | NUR ---
Problems reprioritized. Patient report given, questions answered & plan of care reviewed with TABITHA Emery.
[2021-06-10 06:15] LABS: ALANINE AMINOTRANSFERASE 14 U/L (12-78); ALBUMIN/GLOBULIN RATIO 0.8 (1.1-1.5); ALKALINE PHOSPHATASE 68 IU/L (46-116); ANION GAP 9 (8-16); ASPARTATE AMINO TRANSFERASE 11 U/L (10-37); BILIRUBIN,TOTAL 0.4 MG/DL (0.1-1.0); BLOOD UREA NITROGEN 16 MG/DL (7-18); BUN/CREATININE RATIO 17.2 (5.4-32.0); CALCIUM 8.2 MG/DL (8.5-10.1); CHLORIDE 109 MMOL/L (99-107); CHOL/HDL RATIO 3.9 (0.00-4.99); CHOLESTEROL 146 MG/DL (0-200); CREATININE 0.93 MG/DL (0.60-1.10); GLUCOSE 87 MG/DL (70-104); HDL CHOLESTEROL 37 MG/DL (35-60); LDL CHOLESTEROL 91 MG/DL (50-100); MAGNESIUM 2.2 MG/DL (1.5-2.4); PHOSPHORUS 3.3 MG/DL (2.3-4.5); POTASSIUM 4.4 MMOL/L (3.5-5.1); SODIUM 142 MMOL/L (135-145); TOTAL CARBON DIOXIDE 23.9 MMOL/L (24-32); TOTAL PROTEIN 6.8 G/DL (6.4-8.2); TRIGLYCERIDES 67 MG/DL (20-135); eGFR 83 ML/MIN
--- NOTE | 2021-06-10 06:15 | NUR ---
Patient in room [facility] 345. I have received report from Debi LU Traveler and had the opportunity to ask questions and assume patient care.
[2021-06-10 07:00] VITALS: BP 103/66
[2021-06-10] MEDS: K and/or MAG REPLACEMENT MC SCH ×2 (08:00→20:00)
--- NOTE | 2021-06-10 08:30 | NUR ---
Student documentation: I have reviewed and agree with all interventions, assessments performed and documented by Radha Monroy [place] Student.
[2021-06-10] MEDS: heparin, porcine 5000 units/ml vial SQ SCH ×2 (08:41→19:06)
[2021-06-10] MEDS: cetirizine 10mg tablet PO SCH (08:41)
[2021-06-10] MEDS: docusate sod 100mg capsule PO SCH ×2 (08:41→20:00)
[2021-06-10] MEDS: piperacillin/tazo 3.375gm/50ml 50 ML IV SCH ×3 (09:10→23:11)
[2021-06-10] MEDS: pantoprazole 40mg Tablet.DR PO SCH (11:09)
[2021-06-10 11:35] VITALS: BP 95/63
--- NOTE | 2021-06-10 17:30 | NUR ---
Pharmacy aware that vanco & Zosyn are schedule at the same time 1600. [place] but Zosyn is late and pharmacy does not want to reschedule either one. Guzman chavezraware Addendum: 06/10/21 at 1903 by Yuly Alcala RN Debi SHERIFF traveler aware of the late Zosyn. She states last night she also contacted pharmacy but they stated that as long as it was within the 4hrs it was fine.
--- NOTE | 2021-06-10 18:18 | NUR ---
Problems reprioritized. Patient report given, questions answered & plan of care reviewed with Debi LU Traveler.
--- NOTE | 2021-06-10 18:19 | NUR ---
Problems reprioritized. Patient report given, questions answered & plan of care reviewed with TABITHA Carrera.
[2021-06-10] MEDS: lactobacillus rhamnosus 10,000 MMU CELLS/CAPSULE PO SCH (19:04)
[2021-06-10 20:00] VITALS: BP 107/72
--- NOTE | 2021-06-10 23:11 | NUR ---
Spoke with pharmacy about late admin of zosyn to conflict with vancomycin. PharmD advised to non-admin midnight dose due to current dose still infusing and start 8am dose on time. RN and Pharm aware that zosyn and vanc dose will conflict in time again. RN will initiate a separate INT for dual administration of IV antibiotics in order to keep doses on time.
--- NOTE | 2021-06-10 23:22 | NUR ---
Student documentation: I have reviewed interventions, assessments performed and documented by Shalini GANDARA [facility].
[2021-06-11] VITALS: BP 96/56
[2021-06-11] MEDS ORDERED: VANCOMYCIN LEVEL IV ONE (03:30)
[2021-06-11 03:41] LABS: BASOPHILS # (AUTO) 0.1 X10'3 (0-0.2); BASOPHILS % (AUTO) 1.1 % (0-1); EOSINOPHILS # (AUTO) 0.6 X10'3 (0-0.9); EOSINOPHILS % (AUTO) 10.4 % (0-6); HEMATOCRIT 41.1 % (42.0-52.0); HEMOGLOBIN 14.2 g/dl (14.0-17.9); LYMPHOCYTES # (AUTO) 1.4 X10'3 (1.1-4.8); LYMPHOCYTES % (AUTO) 26.1 % (21-51); MEAN CORPUSCULAR HEMOGLOBIN 31.4 PG (27.0-31.0); MEAN CORPUSCULAR HGB CONC 34.4 g/dL (33.0-36.5); MEAN CORPUSCULAR VOLUME 91.2 FL (78-98); MEAN PLATELET VOLUME 8.3 FL (7.4-10.4); MONOCYTES # (AUTO) 0.7 X10'3 (0-0.9); MONOCYTES % (AUTO) 12.5 % (2-12); NEUTROPHILS # (AUTO) 2.7 X10'3 (1.8-7.7); NEUTROPHILS % (AUTO) 49.9 % (42-75); PLATELET COUNT 230 X10'3 (140-440); RED BLOOD COUNT 4.51 X10'6 (4.70-6.10); RED CELL DISTRIBUTION WIDTH 13.5 % (11.5-14.5); WHITE BLOOD COUNT 5.4 X10'3 (4.5-11.0)
[2021-06-11] MEDS: vancomycin/NS 1 GM ADD-VANTAGE 250 ML IV SCH (03:46)
[2021-06-11 03:56] LABS: ALANINE AMINOTRANSFERASE 13 U/L (12-78); ALBUMIN 3.1 G/DL (3.4-5.0); ALBUMIN/GLOBULIN RATIO 0.8 (1.1-1.5); ALKALINE PHOSPHATASE 70 IU/L (46-116); ANION GAP 5 (8-16); ASPARTATE AMINO TRANSFERASE 10 U/L (10-37); BILIRUBIN,TOTAL 0.2 MG/DL (0.1-1.0); BLOOD UREA NITROGEN 14 MG/DL (7-18); BUN/CREATININE RATIO 16.3 (5.4-32.0); CALCIUM 8.4 MG/DL (8.5-10.1); CHLORIDE 109 MMOL/L (99-107); CREATININE 0.86 MG/DL (0.60-1.10); GLUCOSE 95 MG/DL (70-104); POTASSIUM 4.3 MMOL/L (3.5-5.1); SODIUM 141 MMOL/L (135-145); TOTAL CARBON DIOXIDE 26.8 MMOL/L (24-32); TOTAL PROTEIN 6.8 G/DL (6.4-8.2); eGFR > 90 ML/MIN
[2021-06-11 03:58] LABS: MAGNESIUM 2.3 MG/DL (1.5-2.4); PHOSPHORUS 3.6 MG/DL (2.3-4.5); VANCOMYCIN,TROUGH 11.9 UG/ML (6.0-14.0)
--- NOTE | 2021-06-11 06:15 | NUR ---
Patient in room [facility] 345. I have received report from Debi LU Traveler and had the opportunity to ask questions and assume patient care.
--- NOTE | 2021-06-11 06:22 | NUR ---
Problems reprioritized. Patient report given, questions answered & plan of care reviewed with TABITHA Emery.
[2021-06-11 07:00] VITALS: BP 97/68
[2021-06-11] MEDS: docusate sod 100mg capsule PO SCH (08:00)
[2021-06-11] MEDS: K and/or MAG REPLACEMENT MC SCH (08:00)
[2021-06-11] MEDS: heparin, porcine 5000 units/ml vial SQ SCH (08:27)
[2021-06-11] MEDS: piperacillin/tazo 3.375gm/50ml 50 ML IV SCH (08:27)
[2021-06-11] MEDS: lactobacillus rhamnosus 10,000 MMU CELLS/CAPSULE PO SCH (08:27)
[2021-06-11] MEDS: cetirizine 10mg tablet PO SCH (08:27)
[2021-06-11] MEDS: normal saline 1000ml 1,000 ML IV SCH (08:30)
[2021-06-11] MEDS: pantoprazole 40mg Tablet.DR PO SCH (08:31)
[2021-06-11] MEDS ORDERED: PANT40TA54 PO (12:52)
[2021-06-11] MEDS ORDERED: LINE600T12 PO (12:52)
[2021-06-11] MEDS ORDERED: LACT1CAP26 PO (12:52)
[2021-06-11] MEDS ORDERED: VANCOmycin 1250MG/NS 250ml Bag 250 ML IV SCH (13:00)
--- NOTE | 2021-06-11 17:42 | NUR ---
wheelchair with rn; pt packed own belongings and was picked up about family; script sent to [facility]; pt got to car without assistance
[2021-06-13] MEDS ORDERED: VANCOMYCIN LEVEL IV ONE (00:30)
== END 2021-06-11 17:16 | disposition home or self-care (01) | DRG 383 ==
LOC: ER 11:37 → UNDOADMIN 16:37 → ED HOLD 16:37 → SUR 3N 23:02
PROVIDERS: ADMIT Family Medicine; ATTEND Family Medicine
PROC: 0H9KXZZ Drainage of Right Lower Leg Skin, External Approach (ICD-10-PCS; principal; 2021-06-10)
DX: L03.031 Cellulitis of right toe (principal); B19.20 Unspecified viral hepatitis C without hepatic coma; L02.611 Cutaneous abscess of right foot; F15.10 Other stimulant abuse, uncomplicated; F17.210 Nicotine dependence, cigarettes, uncomplicated; F12.90 Cannabis use, unspecified, uncomplicated; I10 Essential (primary) hypertension; J44.9 Chronic obstructive pulmonary disease, unspecified; Z20.822 Contact with and (suspected) exposure to COVID-19; Z87.442 Personal history of urinary calculi; Z90.49 Acquired absence of other specified parts of digestive tract; Z91.19 Patient's noncompliance with other medical treatment and regimen; Z86.14 Personal history of Methicillin resistant Staphylococcus aureus infection; Z91.041 Radiographic dye allergy status; Z56.0 Unemployment, unspecified; Z71.6 Tobacco abuse counseling; Z71.51 Drug abuse counseling and surveillance of drug abuser
CPT/HCPCS: 36415; 73630; 73723; 80053; 80061; 80202; 80305; 81003; 83036; 83605; 83735; 84100; 84145; 85025; 85651; 86140; 87040; 87081; 87635; 96365; 96375; 97116; 97161; 97530; 99285; A9575; G0378; J0696; J1200; J1644; J2543; J3370; J7030

== ENCOUNTER 2021-07-16 19:17 | Emergency (ER) | payer MEDICAID ==
[~2021-07-16] VITALS: Ht 182.9 cm; Wt 62.7 kg
[~2021-07-16 19:17] MED LIST changes: -CEPH-585 PO; +LACT1CAP26 PO; -LOPE-144 PO; -ONDA4TAB12 PO; -ONDA8TAB13 PO; -ONDA8TAB6 PO; -PANT-47 PO; +PANT40TA54 PO; -PROM12.512 PO; -SOFO1TAB3 PO; -SULF1TAB49 PO; -TRIA15CR61 TOP
[2021-07-16 19:37] VITALS: BP 125/82
[2021-07-16 20:11] LABS: BASOPHILS % (AUTO) 0.2 % (0-1); EOSINOPHILS # (AUTO) 0.3 X10'3 (0-0.9); HEMATOCRIT 46.4 % (42.0-52.0); HEMOGLOBIN 16.2 g/dl (14.0-17.9); LYMPHOCYTES # (AUTO) 1.2 X10'3 (1.1-4.8); LYMPHOCYTES % (AUTO) 14.5 % (21-51); MEAN CORPUSCULAR HEMOGLOBIN 31.7 PG (27.0-31.0); MEAN CORPUSCULAR HGB CONC 34.9 g/dL (33.0-36.5); MEAN CORPUSCULAR VOLUME 90.9 FL (78-98); MEAN PLATELET VOLUME 8.5 FL (7.4-10.4); MONOCYTES # (AUTO) 1.1 X10'3 (0-0.9); MONOCYTES % (AUTO) 13.1 % (2-12); NEUTROPHILS # (AUTO) 5.8 X10'3 (1.8-7.7); NEUTROPHILS % (AUTO) 68.2 % (42-75); PLATELET COUNT 224 X10'3 (140-440); RED CELL DISTRIBUTION WIDTH 13.7 % (11.5-14.5); WHITE BLOOD COUNT 8.5 X10'3 (4.5-11.0)
[2021-07-16 20:20] LABS: ALANINE AMINOTRANSFERASE 6 U/L (12-78); ALBUMIN 3.9 G/DL (3.4-5.0); ALBUMIN/GLOBULIN RATIO 0.9 (1.1-1.5); ALKALINE PHOSPHATASE 79 IU/L (46-116); ANION GAP 7 (8-16); ASPARTATE AMINO TRANSFERASE 9 U/L (10-37); BILIRUBIN,TOTAL 0.6 MG/DL (0.1-1.0); BLOOD UREA NITROGEN 18 MG/DL (7-18); BUN/CREATININE RATIO 18.8 (5.4-32.0); CALCIUM 9.4 MG/DL (8.5-10.1); CHLORIDE 95 MMOL/L (99-107); CREATININE 0.96 MG/DL (0.60-1.10); GLUCOSE 110 MG/DL (70-104); LIPASE 54 U/L (73-393); POTASSIUM 3.8 MMOL/L (3.5-5.1); SODIUM 130 MMOL/L (135-145); TOTAL CARBON DIOXIDE 28.2 MMOL/L (24-32); TOTAL PROTEIN 8.4 G/DL (6.4-8.2); eGFR 80 ML/MIN
[2021-07-16] MEDS ORDERED: LIDOcaine Viscous 15ml cup MM ONE (22:40)
[2021-07-16] MEDS ORDERED: pantoprazole 40mg Tablet.DR PO ONE (22:40)
[2021-07-16] MEDS ORDERED: famotidine/PF 10 mg/ml inj IV ONE (22:40)
[2021-07-16] MEDS ORDERED: normal saline 1000ml 1,000 ML IV ONE (22:40)
[2021-07-16] MEDS ORDERED: mag hydrox/Alum hydrox/simeth 30ml oral suspension PO ONE (22:40)
== END 2021-07-16 23:54 | disposition home or self-care (01) ==
LOC: ER 19:18
DX: K52.9 Noninfective gastroenteritis and colitis, unspecified (principal); R11.2 Nausea with vomiting, unspecified; R10.13 Epigastric pain; I10 Essential (primary) hypertension; J44.9 Chronic obstructive pulmonary disease, unspecified; F17.200 Nicotine dependence, unspecified, uncomplicated; F12.90 Cannabis use, unspecified, uncomplicated; F15.90 Other stimulant use, unspecified, uncomplicated; Z86.19 Personal history of other infectious and parasitic diseases; Z87.442 Personal history of urinary calculi; Z86.14 Personal history of Methicillin resistant Staphylococcus aureus infection; Z90.89 Acquired absence of other organs; Z98.890 Other specified postprocedural states; Z85.9 Personal history of malignant neoplasm, unspecified; Z56.0 Unemployment, unspecified; Z88.8 Allergy status to other drugs, medicaments and biological substances; Z79.899 Other long term (current) drug therapy
CPT/HCPCS: 36415; 80053; 83690; 85025; 96361; 96374; 99284; J3490; J7030

== ENCOUNTER 2021-08-21 08:17 | Emergency (ER) | payer MEDICAID ==
[~2021-08-21] VITALS: Ht 182.9 cm; Wt 138.0 kg
[2021-08-21 08:40] VITALS: BP 115/69
[2021-08-21 12:54] LABS: BASOPHILS # (AUTO) 0.1 X10'3 (0-0.2); BASOPHILS % (AUTO) 0.9 % (0-1); EOSINOPHILS # (AUTO) 0.5 X10'3 (0-0.9); EOSINOPHILS % (AUTO) 5.8 % (0-6); HEMATOCRIT 45.2 % (42.0-52.0); HEMOGLOBIN 15.3 g/dl (14.0-17.9); LYMPHOCYTES # (AUTO) 1.8 X10'3 (1.1-4.8); LYMPHOCYTES % (AUTO) 19.9 % (21-51); MEAN CORPUSCULAR HEMOGLOBIN 30.9 PG (27.0-31.0); MEAN CORPUSCULAR HGB CONC 33.7 g/dL (33.0-36.5); MEAN CORPUSCULAR VOLUME 91.6 FL (78-98); MEAN PLATELET VOLUME 8.3 FL (7.4-10.4); MONOCYTES # (AUTO) 0.8 X10'3 (0-0.9); MONOCYTES % (AUTO) 8.4 % (2-12); NEUTROPHILS # (AUTO) 5.9 X10'3 (1.8-7.7); PLATELET COUNT 237 X10'3 (140-440); RED BLOOD COUNT 4.94 X10'6 (4.70-6.10); RED CELL DISTRIBUTION WIDTH 13.9 % (11.5-14.5); WHITE BLOOD COUNT 9.1 X10'3 (4.5-11.0)
[2021-08-21 13:08] LABS: ALANINE AMINOTRANSFERASE 18 U/L (12-78); ALBUMIN 4.1 G/DL (3.4-5.0); ALBUMIN/GLOBULIN RATIO 0.9 (1.1-1.5); ALKALINE PHOSPHATASE 92 IU/L (46-116); ANION GAP 9 (8-16); ASPARTATE AMINO TRANSFERASE 14 U/L (10-37); BILIRUBIN,TOTAL 0.7 MG/DL (0.1-1.0); BLOOD UREA NITROGEN 16 MG/DL (7-18); BUN/CREATININE RATIO 20.3 (5.4-32.0); CALCIUM 9.3 MG/DL (8.5-10.1); CHLORIDE 100 MMOL/L (99-107); CREATININE 0.79 MG/DL (0.60-1.10); GLUCOSE 93 MG/DL (70-104); POTASSIUM 4.1 MMOL/L (3.5-5.1); SODIUM 136 MMOL/L (135-145); TOTAL CARBON DIOXIDE 26.7 MMOL/L (24-32); TOTAL PROTEIN 8.7 G/DL (6.4-8.2); eGFR > 90 ML/MIN
== END 2021-08-21 14:19 | disposition left against medical advice (07) ==
LOC: ER 08:17
DX: M79.605 Pain in left leg (principal); Z53.21 Procedure and treatment not carried out due to patient leaving prior to being seen by health care provider
CPT/HCPCS: 36415; 80053; 83605; 84145; 85025; 87040

== ENCOUNTER 2022-01-25 14:28 | Emergency (ER) | payer MEDICAID ==
[~2022-01-25] VITALS: Ht 182.9 cm; Wt 52.3 kg
[2022-01-25 16:14] LABS: BASOPHILS % (AUTO) 0.2 % (0-1); EOSINOPHILS # (AUTO) 0.2 X10'3 (0-0.9); EOSINOPHILS % (AUTO) 1.5 % (0-6); HEMATOCRIT 51.1 % (42.0-52.0); HEMOGLOBIN 17.5 g/dl (14.0-17.9); LYMPHOCYTES # (AUTO) 0.4 X10'3 (1.1-4.8); LYMPHOCYTES % (AUTO) 2.9 % (21-51); MEAN CORPUSCULAR HEMOGLOBIN 30.8 PG (27.0-31.0); MEAN CORPUSCULAR HGB CONC 34.2 g/dL (33.0-36.5); MEAN CORPUSCULAR VOLUME 90.1 FL (78-98); MEAN PLATELET VOLUME 8.5 FL (7.4-10.4); MONOCYTES % (AUTO) 6.2 % (2-12); NEUTROPHILS # (AUTO) 13.7 X10'3 (1.8-7.7); NEUTROPHILS % (AUTO) 89.2 % (42-75); PLATELET COUNT 221 X10'3 (140-440); RED BLOOD COUNT 5.67 X10'6 (4.70-6.10); RED CELL DISTRIBUTION WIDTH 14.1 % (11.5-14.5); WHITE BLOOD COUNT 15.4 X10'3 (4.5-11.0)
[2022-01-25 16:25] LABS: ALANINE AMINOTRANSFERASE 12 U/L (12-78); ALBUMIN 4.8 G/DL (3.4-5.0); ALBUMIN/GLOBULIN RATIO 1.1 (1.1-1.5); ALKALINE PHOSPHATASE 94 IU/L (46-116); ANION GAP 7 (8-16); ASPARTATE AMINO TRANSFERASE 17 U/L (10-37); BILIRUBIN,TOTAL 0.6 MG/DL (0.1-1.0); BLOOD UREA NITROGEN 23 MG/DL (7-18); BUN/CREATININE RATIO 21.5 (5.4-32.0); CALCIUM 9.5 MG/DL (8.5-10.1); CHLORIDE 103 MMOL/L (99-107); CREATININE 1.07 MG/DL (0.60-1.10); GLUCOSE 122 MG/DL (70-104); LIPASE 85 U/L (73-393); POTASSIUM 4.3 MMOL/L (3.5-5.1); SODIUM 137 MMOL/L (135-145); TOTAL CARBON DIOXIDE 27.5 MMOL/L (24-32); TOTAL PROTEIN 9.2 G/DL (6.4-8.2); eGFR 70 ML/MIN
[2022-01-25] MEDS ORDERED: normal saline 1000ML IV soln IVB ONE ×2 (16:25→18:35)
[2022-01-25] MEDS ORDERED: morphine 4 MG/ML inj SYRINge IV ONE (16:25)
[2022-01-25] MEDS ORDERED: ondansetron/PF 4mg/2ml inj IV ONE (16:25)
[2022-01-25] MEDS ORDERED: CefTRIAXone 2gm/NS 100ml IVPB 100 ML IV SCH (18:35)
[2022-01-25 20:08] LABS: CLARITY,URINE SLIGHTLY CLOUDY (Clear); COLOR,URINE YELLOW (Yellow); GLUCOSE, URINE NEGATIVE (Neg); KETONES,URINE NEGATIVE (Neg); LEUKOCYTE ESTERASE ,URINE SMALL (Neg); NITRITES, URINE NEGATIVE (Neg); OCCULT BLOOD,URINE SMALL (Neg); PROTEIN,URINE TRACE mg/dl (Neg); UROBILINOGEN,URINE 0.2 E.U/dL (0.2-1.0)
[2022-01-25 20:13] LABS: BACTERIA,URINE FEW /HPF (Neg); RBC,URINE 0-2 /HPF (0-2); SQUAMOUS EPITHELIAL CELL,UR FEW /LPF (FEW); UA COLLECTION TYPE URINAL; WBC CLUMPS,URINE FEW /HPF (NEGATIVE); WBC,URINE 30-50 /HPF (0-4)
[2022-01-25] MEDS ORDERED: AMOX-117 PO (20:53)
[2022-01-25 21:21] VITALS: BP 103/64
[2022-01-25] MEDS ORDERED: ondansetron 4mg rapidly disintigrating tab PO ONE (21:25)
== END 2022-01-25 21:34 | disposition home or self-care (01) ==
LOC: ER 14:28
DX: N39.0 Urinary tract infection, site not specified (principal); R11.2 Nausea with vomiting, unspecified; E86.0 Dehydration; F12.90 Cannabis use, unspecified, uncomplicated; F17.200 Nicotine dependence, unspecified, uncomplicated; F15.90 Other stimulant use, unspecified, uncomplicated; I10 Essential (primary) hypertension; J44.9 Chronic obstructive pulmonary disease, unspecified; Z86.14 Personal history of Methicillin resistant Staphylococcus aureus infection; Z56.0 Unemployment, unspecified; Z86.19 Personal history of other infectious and parasitic diseases; Z85.9 Personal history of malignant neoplasm, unspecified; Z87.442 Personal history of urinary calculi; Z90.49 Acquired absence of other specified parts of digestive tract; Z88.8 Allergy status to other drugs, medicaments and biological substances; Z79.899 Other long term (current) drug therapy
CPT/HCPCS: 36415; 74176; 80053; 81001; 83605; 83690; 84145; 85025; 87088; 93005; 96361; 96365; 96375; 99285; J0696; J2270; J2405; J7030

== ENCOUNTER 2022-08-25 16:12 | Emergency (ER) | payer MEDICAID ==
[~2022-08-25] VITALS: Ht 182.9 cm; Wt 55.0 kg
[2022-08-25 17:12] LABS: BASOPHILS % (AUTO) 0.2 % (0-1); EOSINOPHILS # (AUTO) 0.3 X10'3 (0-0.9); EOSINOPHILS % (AUTO) 2.9 % (0-6); HEMATOCRIT 42.8 % (42.0-52.0); LYMPHOCYTES # (AUTO) 0.6 X10'3 (1.1-4.8); LYMPHOCYTES % (AUTO) 5.6 % (21-51); MEAN CORPUSCULAR HEMOGLOBIN 30.2 PG (27.0-31.0); MEAN CORPUSCULAR HGB CONC 32.6 g/dL (33.0-36.5); MEAN CORPUSCULAR VOLUME 92.8 FL (78-98); MEAN PLATELET VOLUME 8.9 FL (7.4-10.4); MONOCYTES # (AUTO) 1.1 X10'3 (0-0.9); MONOCYTES % (AUTO) 9.9 % (2-12); NEUTROPHILS # (AUTO) 9.2 X10'3 (1.8-7.7); NEUTROPHILS % (AUTO) 81.4 % (42-75); PLATELET COUNT 189 X10'3 (140-440); RED BLOOD COUNT 4.62 X10'6 (4.70-6.10); RED CELL DISTRIBUTION WIDTH 13.8 % (11.5-14.5); WHITE BLOOD COUNT 11.3 X10'3 (4.5-11.0)
[2022-08-25 17:20] LABS: ALANINE AMINOTRANSFERASE 14 U/L (12-78); ALBUMIN 3.4 G/DL (3.4-5.0); ALKALINE PHOSPHATASE 64 IU/L (46-116); ANION GAP 6 (8-16); ASPARTATE AMINO TRANSFERASE 14 U/L (10-37); BILIRUBIN,TOTAL 0.6 MG/DL (0.1-1.0); BLOOD UREA NITROGEN 23 MG/DL (7-18); BUN/CREATININE RATIO 24.7 (5.4-32.0); CALCIUM 8.2 MG/DL (8.5-10.1); CHLORIDE 105 MMOL/L (99-107); CREATININE 0.93 MG/DL (0.60-1.10); GLUCOSE 107 MG/DL (70-104); LIPASE 73 U/L (73-393); POTASSIUM 4.3 MMOL/L (3.5-5.1); SODIUM 137 MMOL/L (135-145); TOTAL CARBON DIOXIDE 25.6 MMOL/L (24-32); TOTAL PROTEIN 6.8 G/DL (6.4-8.2); eGFR 83 ML/MIN
[2022-08-25] MEDS ORDERED: metroNIDAZOLE 500mg tablet PO ONE (19:55)
[2022-08-25] MEDS ORDERED: cefuroxime axetil 250mg tablet PO ONE (19:55)
[2022-08-25] MEDS ORDERED: ONDA8TAB13 PO (20:16)
[2022-08-25] MEDS ORDERED: CEFU500T66 PO (20:16)
[2022-08-25] MEDS ORDERED: METR-159 PO (20:16)
[2022-08-25 21:02] VITALS: BP 94/52
== END 2022-08-25 21:03 | disposition home or self-care (01) ==
LOC: ER 16:13
DX: A04.9 Bacterial intestinal infection, unspecified (principal); I10 Essential (primary) hypertension; J44.9 Chronic obstructive pulmonary disease, unspecified; F12.90 Cannabis use, unspecified, uncomplicated; F15.20 Other stimulant dependence, uncomplicated; Z91.041 Radiographic dye allergy status; Z98.890 Other specified postprocedural states
CPT/HCPCS: 36415; 71045; 80053; 83605; 83690; 84145; 85025; 93005; 99285

== ENCOUNTER 2022-10-06 07:48 | Emergency (ER) | payer MEDICAID ==
[~2022-10-06] VITALS: Ht 182.9 cm; Wt 55.9 kg
[~2022-10-06 07:48] MED LIST changes: +CEFU500T66 PO; +ONDA8TAB13 PO
[2022-10-06 08:03] VITALS: BP 108/72
[2022-10-06] MEDS ORDERED: CefTRIAXone 2gm/D5W 50ml BAG 50 ML IV ONE ×3 (08:40→10:50)
[2022-10-06] MEDS ORDERED: ipratropium/albuterol 3ml nebule NEB ONE (08:45)
[2022-10-06] MEDS ORDERED: albuterol 2.5 MG/3 ML nebule NEB ONE (08:45)
[2022-10-06 09:27] LABS: BASOPHILS % (AUTO) 0.3 % (0-1); EOSINOPHILS # (AUTO) 0.3 X10'3 (0-0.9); EOSINOPHILS % (AUTO) 2.5 % (0-6); HEMATOCRIT 45.9 % (42.0-52.0); LYMPHOCYTES # (AUTO) 1.2 X10'3 (1.1-4.8); LYMPHOCYTES % (AUTO) 9.3 % (21-51); MEAN CORPUSCULAR HEMOGLOBIN 30.3 PG (27.0-31.0); MEAN CORPUSCULAR HGB CONC 32.8 g/dL (33.0-36.5); MEAN CORPUSCULAR VOLUME 92.4 FL (78-98); MEAN PLATELET VOLUME 8.6 FL (7.4-10.4); MONOCYTES # (AUTO) 1.3 X10'3 (0-0.9); MONOCYTES % (AUTO) 10.5 % (2-12); NEUTROPHILS # (AUTO) 9.7 X10'3 (1.8-7.7); NEUTROPHILS % (AUTO) 77.4 % (42-75); PLATELET COUNT 180 X10'3 (140-440); RED BLOOD COUNT 4.97 X10'6 (4.70-6.10); RED CELL DISTRIBUTION WIDTH 13.8 % (11.5-14.5); WHITE BLOOD COUNT 12.5 X10'3 (4.5-11.0)
[2022-10-06 09:42] LABS: ALANINE AMINOTRANSFERASE 12 U/L (12-78); ALBUMIN 3.5 G/DL (3.4-5.0); ALBUMIN/GLOBULIN RATIO 0.8 (1.1-1.5); ALKALINE PHOSPHATASE 77 IU/L (46-116); ANION GAP 6 (8-16); ASPARTATE AMINO TRANSFERASE 19 U/L (10-37); BILIRUBIN,TOTAL 0.5 MG/DL (0.1-1.0); BLOOD UREA NITROGEN 18 MG/DL (7-18); BUN/CREATININE RATIO 18.8 (5.4-32.0); CALCIUM 9.1 MG/DL (8.5-10.1); CHLORIDE 101 MMOL/L (99-107); CREATININE 0.96 MG/DL (0.60-1.10); GLUCOSE 106 MG/DL (70-104); POTASSIUM 4.2 MMOL/L (3.5-5.1); SODIUM 133 MMOL/L (135-145); TOTAL CARBON DIOXIDE 26.3 MMOL/L (24-32); TOTAL PROTEIN 7.8 G/DL (6.4-8.2); eGFR 80 ML/MIN
[2022-10-06 10:29] LABS: CLARITY,URINE CLEAR (Clear); COLOR,URINE YELLOW (Yellow); GLUCOSE, URINE NEGATIVE (Neg); KETONES,URINE NEGATIVE (Neg); LEUKOCYTE ESTERASE ,URINE NEGATIVE (Neg); NITRITES, URINE NEGATIVE (Neg); OCCULT BLOOD,URINE TRACE-INTACT (Neg); PROTEIN,URINE NEGATIVE (Neg); UA COLLECTION TYPE VOIDED
[2022-10-06 10:40] LABS: BACTERIA,URINE NONE SEEN /HPF (Neg); MUCUS STRANDS FEW /LPF (Neg); RBC,URINE 0-2 /HPF (0-2); SPERM MODERATE /HPF (NEGATIVE); SQUAMOUS EPITHELIAL CELL,UR MODERATE /LPF (FEW); WBC,URINE 0-4 /HPF (0-4)
[2022-10-06] MEDS ORDERED: ondansetron/PF 4mg/2ml inj IV ONE (10:45)
[2022-10-06] MEDS ORDERED: morphine 4 MG/ML inj SYRINge IV PRN (10:45)
[2022-10-06] MEDS ORDERED: CLIN300C63 PO (11:37)
[2022-10-06] MEDS ORDERED: HYDR-3965 PO (11:37)
== END 2022-10-06 12:00 | disposition home or self-care (01) ==
LOC: ER 07:49
DX: L03.116 Cellulitis of left lower limb (principal); J44.9 Chronic obstructive pulmonary disease, unspecified; R10.32 Left lower quadrant pain; I10 Essential (primary) hypertension; F12.90 Cannabis use, unspecified, uncomplicated; F15.90 Other stimulant use, unspecified, uncomplicated; Z87.442 Personal history of urinary calculi; Z90.49 Acquired absence of other specified parts of digestive tract; Z56.0 Unemployment, unspecified; Z86.14 Personal history of Methicillin resistant Staphylococcus aureus infection; Z91.041 Radiographic dye allergy status; Z79.899 Other long term (current) drug therapy
CPT/HCPCS: 36415; 71045; 80053; 81001; 83605; 83735; 84145; 85025; 87040; 93005; 94640; 96374; 96375; 99285; J0696; J2270; J2405; 94760

== ENCOUNTER 2022-10-08 13:10 | Emergency (ER) | payer MEDICAID ==
[~2022-10-08] VITALS: Ht 182.9 cm; Wt 58.7 kg
[~2022-10-08 13:10] MED LIST changes: +CLIN300C63 PO; +HYDR-3965 PO
[2022-10-08 13:44] VITALS: BP 109/71
--- NOTE | 2022-10-08 15:37 | NUR ---
Attempted to call patient [facility] ED lobby, no answer.
== END 2022-10-09 00:03 | disposition left against medical advice (07) ==
LOC: ER 13:11
DX: M79.605 Pain in left leg (principal); Z53.21 Procedure and treatment not carried out due to patient leaving prior to being seen by health care provider
CPT/HCPCS: 99281

== ENCOUNTER 2022-11-20 14:47 | Emergency (ER) | payer MEDICAID ==
[~2022-11-20] VITALS: Ht 182.9 cm; Wt 62.7 kg
[~2022-11-20 14:47] MED LIST changes: -CLIN300C63 PO; -HYDR-3965 PO
[2022-11-20 17:02] LABS: BASOPHILS % (AUTO) 0.3 % (0-1); EOSINOPHILS # (AUTO) 0.2 X10'3 (0-0.9); EOSINOPHILS % (AUTO) 2.2 % (0-6); HEMATOCRIT 44.4 % (42.0-52.0); HEMOGLOBIN 14.9 g/dl (14.0-17.9); LYMPHOCYTES # (AUTO) 0.9 X10'3 (1.1-4.8); LYMPHOCYTES % (AUTO) 8.1 % (21-51); MEAN CORPUSCULAR HEMOGLOBIN 30.5 PG (27.0-31.0); MEAN CORPUSCULAR HGB CONC 33.6 g/dL (33.0-36.5); MEAN CORPUSCULAR VOLUME 90.9 FL (78-98); MEAN PLATELET VOLUME 8.6 FL (7.4-10.4); MONOCYTES # (AUTO) 1.1 X10'3 (0-0.9); MONOCYTES % (AUTO) 9.7 % (2-12); NEUTROPHILS # (AUTO) 8.9 X10'3 (1.8-7.7); NEUTROPHILS % (AUTO) 79.7 % (42-75); PLATELET COUNT 171 X10'3 (140-440); RED BLOOD COUNT 4.89 X10'6 (4.70-6.10); RED CELL DISTRIBUTION WIDTH 14.4 % (11.5-14.5); WHITE BLOOD COUNT 11.2 X10'3 (4.5-11.0)
[2022-11-20 17:20] LABS: ALANINE AMINOTRANSFERASE 21 U/L (12-78); ALBUMIN 3.6 G/DL (3.4-5.0); ALBUMIN/GLOBULIN RATIO 0.8 (1.1-1.5); ALKALINE PHOSPHATASE 66 IU/L (46-116); ANION GAP 7 (8-16); ASPARTATE AMINO TRANSFERASE 26 U/L (10-37); BILIRUBIN,TOTAL 0.5 MG/DL (0.1-1.0); BLOOD UREA NITROGEN 26 MG/DL (7-18); CALCIUM 9.4 MG/DL (8.5-10.1); CHLORIDE 99 MMOL/L (99-107); CREATININE 0.93 MG/DL (0.60-1.10); GLUCOSE 93 MG/DL (70-104); POTASSIUM 4.5 MMOL/L (3.5-5.1); SODIUM 133 MMOL/L (135-145); TOTAL CARBON DIOXIDE 27.1 MMOL/L (24-32); eGFR 83 ML/MIN
[2022-11-20] MEDS ORDERED: sulfamethoxazole/trimethoprim DS (800/160mg) tablet PO ONE (18:20)
[2022-11-20] MEDS ORDERED: SULF1TAB45 PO (18:20)
[2022-11-20 18:29] VITALS: BP 106/72
== END 2022-11-20 18:31 | disposition home or self-care (01) ==
LOC: ER 14:47
DX: L03.116 Cellulitis of left lower limb (principal); J44.9 Chronic obstructive pulmonary disease, unspecified; Z87.442 Personal history of urinary calculi; Z86.14 Personal history of Methicillin resistant Staphylococcus aureus infection; F12.10 Cannabis abuse, uncomplicated; F15.10 Other stimulant abuse, uncomplicated; Z56.0 Unemployment, unspecified; Z90.49 Acquired absence of other specified parts of digestive tract; Z88.8 Allergy status to other drugs, medicaments and biological substances; Z79.899 Other long term (current) drug therapy; Z79.1 Long term (current) use of non-steroidal anti-inflammatories (NSAID)
CPT/HCPCS: 36415; 80053; 85025; 99283

== ENCOUNTER 2023-04-12 19:50 | Emergency (ER) | payer MEDICAID ==
[~2023-04-12] VITALS: Ht 188 cm; Wt 63.6 kg
[2023-04-12 20:32] VITALS: BP 122/79; PULSE 77; RESP 14; TEMP 98.3; O2SAT 100
== END 2023-04-12 22:41 | disposition left against medical advice (07) ==
LOC: ER 19:51
DX: M79.605 Pain in left leg (principal); Z53.21 Procedure and treatment not carried out due to patient leaving prior to being seen by health care provider
CPT/HCPCS: 99281

== ENCOUNTER 2023-06-16 08:31 | Emergency (ER) | payer MEDICAID ==
[~2023-06-16] VITALS: Ht 182.9 cm; Wt 59.1 kg
[2023-06-16 08:45] VITALS: TEMP 98
[2023-06-16] MEDS ORDERED: DOXY-356 PO (11:01)
[2023-06-16 11:32] VITALS: BP 104/75; PULSE 68; RESP 18; O2SAT 98
== END 2023-06-16 11:59 | disposition home or self-care (01) ==
LOC: ER 08:31
DX: L03.116 Cellulitis of left lower limb (principal); R59.0 Localized enlarged lymph nodes; I10 Essential (primary) hypertension; J44.9 Chronic obstructive pulmonary disease, unspecified
CPT/HCPCS: 93971; 99284

== ENCOUNTER 2023-07-23 05:52 | Emergency (ER) | payer MEDICAID ==
[~2023-07-23] VITALS: Ht 185.4 cm; Wt 72.0 kg
[2023-07-23] MEDS ORDERED: morphine 4 MG/ML inj SYRINge IV ONE (06:35)
[2023-07-23] MEDS ORDERED: normal saline 1000ML IV soln IVB ONE (06:35)
[2023-07-23] MEDS ORDERED: ondansetron/PF 4mg/2ml inj IV ONE ×2 (06:35→15:00)
[2023-07-23 08:39] LABS: BASOPHILS % (AUTO) 0.1 % (0-1); EOSINOPHILS # (AUTO) 0.2 X10'3 (0-0.9); EOSINOPHILS % (AUTO) 1.4 % (0-6); HEMATOCRIT 45.9 % (42.0-52.0); HEMOGLOBIN 15.2 g/dl (14.0-17.9); LYMPHOCYTES # (AUTO) 0.6 X10'3 (1.1-4.8); LYMPHOCYTES % (AUTO) 3.8 % (21-51); MEAN CORPUSCULAR HEMOGLOBIN 30.5 PG (27.0-31.0); MEAN CORPUSCULAR VOLUME 92.3 FL (78-98); MONOCYTES # (AUTO) 1.2 X10'3 (0-0.9); MONOCYTES % (AUTO) 7.8 % (2-12); NEUTROPHILS # (AUTO) 13.9 X10'3 (1.8-7.7); NEUTROPHILS % (AUTO) 86.9 % (42-75); PLATELET COUNT 198 X10'3 (140-440); RED BLOOD COUNT 4.98 X10'6 (4.70-6.10); RED CELL DISTRIBUTION WIDTH 14.5 % (11.5-14.5)
[2023-07-23 09:07] LABS: ALANINE AMINOTRANSFERASE 25 U/L (12-78); ALBUMIN 3.9 G/DL (3.4-5.0); ALKALINE PHOSPHATASE 66 IU/L (46-116); ANION GAP 8 (8-16); ASPARTATE AMINO TRANSFERASE 19 U/L (10-37); BILIRUBIN,TOTAL 0.3 MG/DL (0.1-1.0); BLOOD UREA NITROGEN 24 MG/DL (7-18); CALCIUM 8.8 MG/DL (8.5-10.1); CHLORIDE 105 MMOL/L (99-107); ETHANOL < 10 MG/DL (<10); GLUCOSE 98 MG/DL (70-104); LIPASE 27 U/L (16-77); POTASSIUM 4.6 MMOL/L (3.5-5.1); SODIUM 139 MMOL/L (135-145); TOTAL CARBON DIOXIDE 26.4 MMOL/L (24-32); TOTAL PROTEIN 7.7 G/DL (6.4-8.2); eCRCL 78 ML/MIN; eGFR 76 ML/MIN
[2023-07-23 09:49] VITALS: TEMP 98.6
[2023-07-23 09:58] LABS: URINE AMPHETAMINE SCREEN POSITIVE (Neg); URINE BARBITUATE SCREEN NEGATIVE (Neg); URINE BENZODIAZEPINES SCREEN NEGATIVE (Neg); URINE CANNABINOID SCREEN POSITIVE (Neg); URINE COCAINE SCREEN NEGATIVE (Neg); URINE METHADONE SCREEN NEGATIVE (Neg); URINE OPIATE SCREEN POSITIVE (Neg); URINE PHENCYCLIDINE SCREEN NEGATIVE (Neg)
[2023-07-23 10:08] LABS: BILIRUBIN,URINE NEGATIVE (Neg); CLARITY,URINE CLEAR (Clear); COLOR,URINE YELLOW (Yellow); GLUCOSE, URINE NEGATIVE (Neg); KETONES,URINE NEGATIVE (Neg); LEUKOCYTE ESTERASE ,URINE NEGATIVE (Neg); NITRITES, URINE NEGATIVE (Neg); OCCULT BLOOD,URINE TRACE-INTACT (Neg); PROTEIN,URINE NEGATIVE (Neg); UROBILINOGEN,URINE 0.2 E.U/dL (0.2-1.0)
[2023-07-23 10:12] LABS: UA COLLECTION TYPE CLN CATCH MIDSTREAM
[2023-07-23 10:15] LABS: SQUAMOUS EPITHELIAL CELL,UR FEW /LPF (FEW); TRANSITIONAL EPI CELLS,URINE FEW /HPF
[2023-07-23 10:16] LABS: HYALINE CASTS 0-3 /LPF (NEGATIVE); WBC,URINE 0-4 /HPF (0-4)
[2023-07-23 10:20] LABS: BACTERIA,URINE FEW /HPF (Neg)
[2023-07-23 10:21] LABS: SPERM FEW /HPF (NEGATIVE)
[2023-07-23 12:45] VITALS: BP 118/67; PULSE 98; RESP 14; O2SAT 98
[2023-07-23] MEDS ORDERED: ONDA4TAB12 PO (21:48)
== END 2023-07-23 16:18 | disposition home or self-care (01) ==
LOC: ER 05:53
DX: R10.13 Epigastric pain (principal); R11.2 Nausea with vomiting, unspecified; I10 Essential (primary) hypertension; J44.9 Chronic obstructive pulmonary disease, unspecified; F12.90 Cannabis use, unspecified, uncomplicated; F15.90 Other stimulant use, unspecified, uncomplicated; Z90.49 Acquired absence of other specified parts of digestive tract; Z87.442 Personal history of urinary calculi; Z86.14 Personal history of Methicillin resistant Staphylococcus aureus infection; Z86.19 Personal history of other infectious and parasitic diseases; Z56.0 Unemployment, unspecified; Z98.890 Other specified postprocedural states; Z91.041 Radiographic dye allergy status; Z79.899 Other long term (current) drug therapy
CPT/HCPCS: 36415; 70450; 71045; 74176; 80053; 80305; 80320; 81001; 83690; 83735; 84484; 85025; 93005; 96361; 96374; 96375; 96376; 99285; J2270; J2405; J7030

== ENCOUNTER 2023-07-23 21:01 | Emergency (ER) | payer MEDICAID ==
[~2023-07-23] VITALS: Ht 182.9 cm; Wt 59.1 kg
[2023-07-23] MEDS ORDERED: LORazepam 2 mg/ml vial IV ONE (21:15)
[2023-07-23] MEDS ORDERED: haloperidol lactate 5mg/ml inj IM ONE (21:15)
[2023-07-23] MEDS ORDERED: normal saline 1000ML IV soln IVB ONE ×2 (21:15→22:40)
[2023-07-23] MEDS ORDERED: ketorolac tromethamine 15mg/ml inj. IV ONE (21:15)
[2023-07-23] MEDS ORDERED: morphine 4 MG/ML inj SYRINge IV ONE (21:15)
[2023-07-23] MEDS ORDERED: diazepam inj 5 MG/ML inj. IV ONE (21:40)
[2023-07-23] MEDS ORDERED: proCHLORperazine 10 MG/2 ml inj IV ONE (21:45)
[2023-07-23] MEDS ORDERED: ONDA4TAB12 PO (21:48)
[2023-07-23 22:02] LABS: BASOPHILS % (AUTO) 0.2 % (0-1); EOSINOPHILS # (AUTO) 0.3 X10'3 (0-0.9); EOSINOPHILS % (AUTO) 2.7 % (0-6); HEMATOCRIT 45.8 % (42.0-52.0); HEMOGLOBIN 15.2 g/dl (14.0-17.9); LYMPHOCYTES % (AUTO) 9.8 % (21-51); MEAN CORPUSCULAR HEMOGLOBIN 30.6 PG (27.0-31.0); MEAN CORPUSCULAR HGB CONC 33.2 g/dL (33.0-36.5); MEAN CORPUSCULAR VOLUME 92.2 FL (78-98); MEAN PLATELET VOLUME 8.7 FL (7.4-10.4); MONOCYTES # (AUTO) 0.8 X10'3 (0-0.9); NEUTROPHILS # (AUTO) 7.9 X10'3 (1.8-7.7); NEUTROPHILS % (AUTO) 79.3 % (42-75); PLATELET COUNT 214 X10'3 (140-440); RED BLOOD COUNT 4.97 X10'6 (4.70-6.10); RED CELL DISTRIBUTION WIDTH 14.6 % (11.5-14.5)
[2023-07-23 22:18] LABS: ALANINE AMINOTRANSFERASE 21 U/L (12-78); ALBUMIN 3.7 G/DL (3.4-5.0); ALBUMIN/GLOBULIN RATIO 0.9 (1.1-1.5); ALKALINE PHOSPHATASE 67 IU/L (46-116); ANION GAP 11 (8-16); ASPARTATE AMINO TRANSFERASE 19 U/L (10-37); BLOOD UREA NITROGEN 26 MG/DL (7-18); BUN/CREATININE RATIO 25.2 (10.0-20.0); CALCIUM 9.1 MG/DL (8.5-10.1); CHLORIDE 102 MMOL/L (99-107); CREATININE 1.03 MG/DL (0.60-1.10); ETHANOL < 10 MG/DL (<10); GLUCOSE 111 MG/DL (70-104); LIPASE 23 U/L (16-77); POTASSIUM 4.5 MMOL/L (3.5-5.1); SODIUM 137 MMOL/L (135-145); TOTAL CARBON DIOXIDE 23.9 MMOL/L (24-32); TOTAL PROTEIN 7.7 G/DL (6.4-8.2); eCRCL 62 ML/MIN; eGFR 73 ML/MIN
[2023-07-23 22:39] VITALS: RESP 16
[2023-07-23 23:16] VITALS: BP 98/66; PULSE 78; TEMP 98.3; O2SAT 98
== END 2023-07-23 23:31 | disposition home or self-care (01) ==
LOC: ER 21:01
DX: R11.2 Nausea with vomiting, unspecified (principal); R10.9 Unspecified abdominal pain; F15.90 Other stimulant use, unspecified, uncomplicated; I10 Essential (primary) hypertension; J44.9 Chronic obstructive pulmonary disease, unspecified; Z87.442 Personal history of urinary calculi; Z86.14 Personal history of Methicillin resistant Staphylococcus aureus infection; Z86.19 Personal history of other infectious and parasitic diseases; F12.90 Cannabis use, unspecified, uncomplicated; Z56.0 Unemployment, unspecified; Z79.899 Other long term (current) drug therapy; Z98.890 Other specified postprocedural states; Z91.041 Radiographic dye allergy status
CPT/HCPCS: 36415; 74018; 80053; 80320; 83690; 83735; 85025; 93005; 96361; 96372; 96374; 96375; 99285; J0780; J1630; J1885; J2270; J7030

== ENCOUNTER 2024-01-12 00:48 | Inpatient (IN) | payer MEDICAID ==
[~2024-01-12] VITALS: Ht 182.9 cm; Wt 58.0 kg
[~2024-01-12 00:48] MED LIST changes: +ONDA4TAB12 PO
[2024-01-12 03:38] LABS: BASOPHILS # (AUTO) 0.1 X10'3 (0-0.2); BASOPHILS % (AUTO) 0.9 % (0-1); EOSINOPHILS # (AUTO) 0.2 X10'3 (0-0.9); HEMATOCRIT 41.9 % (42.0-52.0); HEMOGLOBIN 14.3 g/dl (14.0-17.9); LYMPHOCYTES # (AUTO) 1.5 X10'3 (1.1-4.8); LYMPHOCYTES % (AUTO) 24.7 % (21-51); MEAN CORPUSCULAR HEMOGLOBIN 31.2 PG (27.0-31.0); MEAN CORPUSCULAR HGB CONC 34.2 g/dL (33.0-36.5); MEAN CORPUSCULAR VOLUME 91.1 FL (78-98); MEAN PLATELET VOLUME 8.3 FL (7.4-10.4); MONOCYTES # (AUTO) 0.8 X10'3 (0-0.9); MONOCYTES % (AUTO) 13.6 % (2-12); NEUTROPHILS # (AUTO) 3.5 X10'3 (1.8-7.7); NEUTROPHILS % (AUTO) 56.8 % (42-75); PLATELET COUNT 198 X10'3 (140-440); RED CELL DISTRIBUTION WIDTH 14.1 % (11.5-14.5); WHITE BLOOD COUNT 6.2 X10'3 (4.5-11.0)
[2024-01-12 03:43] LABS: ALBUMIN 3.5 G/DL (3.4-5.0); ANION GAP 9 (8-16); BLOOD UREA NITROGEN 17 MG/DL (7-18); BUN/CREATININE RATIO 22.1 (10.0-20.0); CHLORIDE 102 MMOL/L (99-107); CREATININE 0.77 MG/DL (0.60-1.10); GLUCOSE 96 MG/DL (70-104); MAGNESIUM 2.2 MG/DL (1.5-2.4); SODIUM 138 MMOL/L (135-145); TOTAL CARBON DIOXIDE 27.3 MMOL/L (24-32); eCRCL 82 ML/MIN; eGFR > 90 ML/MIN
[2024-01-12 03:45] LABS: POTASSIUM 4.1 MMOL/L (3.5-5.1)
[2024-01-12] MEDS: CefTRIAXone/D5W-Rocephin 1gm 50 ML IV ONE (04:18)
[2024-01-12] MEDS: DOXYCYCLINE 100MG CAPSULE PO STA (04:19)
[2024-01-12] MEDS ORDERED: magnesium hydroxide 30ml (MOM) UD suspension PO PRN (04:45)
[2024-01-12] MEDS ORDERED: potassium Cl 40MEQ/1/2NS 520ml 520 ML IV PRN (04:45)
[2024-01-12] MEDS ORDERED: magnesium 4gm in 100ml NS 100 ML IV PRN (04:45)
[2024-01-12] MEDS ORDERED: mag hydrox/Alum hydrox/simeth 30ml oral suspension PO PRN (04:45)
[2024-01-12] MEDS ORDERED: morphine 2 MG/ML inj. syringe IV PRN ×2 (04:45)
[2024-01-12] MEDS ORDERED: ondansetron/PF 4mg/2ml inj IV PRN (04:45)
[2024-01-12] MEDS ORDERED: acetaminophen 325mg tablet PO PRN (04:45)
[2024-01-12] MEDS ORDERED: potassium Cl 20 mEq SR tablet PO PRN ×2 (04:45)
[2024-01-12] MEDS ORDERED: magnesium 2GM in 50ml NS 50 ML IV PRN (04:45)
[2024-01-12] MEDS ORDERED: magnesium Cl slow-release 64mg tablet PO PRN (04:45)
[2024-01-12] MEDS: vancomycin/NS 1 GM ADD-VANTAGE 250 ML IV SCH (05:17)
[2024-01-12] MEDS: nicotine 14mg patch - 24hr TD ONE (05:21)
[2024-01-12] MEDS: enoxaparin 40mg/0.4ml syringe SUBCUT SCH (07:03)
[2024-01-12] MEDS: K and/or MAG REPLACEMENT MC SCH (07:03)
[2024-01-12] MEDS ORDERED: NO HOME MEDS (09:45)
[2024-01-12 15:00] VITALS: BP 107/73; PULSE 59; RESP 18; TEMP 97.2; O2SAT 99
[2024-01-12] MEDS: normal saline 1000ml 1,000 ML IV SCH (17:35)
[2024-01-12 18:00] VITALS: BP 95/59; PULSE 67; RESP 14; TEMP 97.9; O2SAT 98
[2024-01-12] MEDS: CefTRIAXone/D5W-Rocephin 1gm 50 ML IV SCH (19:04)
[2024-01-12 22:00] VITALS: BP 94/55; PULSE 58; RESP 16; TEMP 98.2; O2SAT 98
[2024-01-13 06:00] VITALS: BP 128/83; PULSE 64; RESP 16; TEMP 98.6; O2SAT 97
[2024-01-13 07:08] LABS: BASOPHILS # (AUTO) 0.1 X10'3 (0-0.2); BASOPHILS % (AUTO) 1.1 % (0-1); EOSINOPHILS # (AUTO) 0.5 X10'3 (0-0.9); EOSINOPHILS % (AUTO) 8.4 % (0-6); HEMATOCRIT 41.7 % (42.0-52.0); LYMPHOCYTES # (AUTO) 1.7 X10'3 (1.1-4.8); LYMPHOCYTES % (AUTO) 31.8 % (21-51); MEAN CORPUSCULAR HEMOGLOBIN 30.8 PG (27.0-31.0); MEAN CORPUSCULAR HGB CONC 33.6 g/dL (33.0-36.5); MEAN CORPUSCULAR VOLUME 91.8 FL (78-98); MEAN PLATELET VOLUME 8.4 FL (7.4-10.4); MONOCYTES # (AUTO) 0.8 X10'3 (0-0.9); MONOCYTES % (AUTO) 14.1 % (2-12); NEUTROPHILS # (AUTO) 2.4 X10'3 (1.8-7.7); NEUTROPHILS % (AUTO) 44.6 % (42-75); PLATELET COUNT 210 X10'3 (140-440); RED BLOOD COUNT 4.55 X10'6 (4.70-6.10); RED CELL DISTRIBUTION WIDTH 14.1 % (11.5-14.5); WHITE BLOOD COUNT 5.4 X10'3 (4.5-11.0)
[2024-01-13 07:23] LABS: ANION GAP 9 (8-16); BLOOD UREA NITROGEN 14 MG/DL (7-18); BUN/CREATININE RATIO 21.2 (10.0-20.0); CALCIUM 8.7 MG/DL (8.5-10.1); CHLORIDE 105 MMOL/L (99-107); CREATININE 0.66 MG/DL (0.60-1.10); GLUCOSE 90 MG/DL (70-104); POTASSIUM 4.2 MMOL/L (3.5-5.1); SODIUM 138 MMOL/L (135-145); TOTAL CARBON DIOXIDE 23.8 MMOL/L (24-32); eCRCL 95 ML/MIN; eGFR > 90 ML/MIN
[2024-01-13 10:00] VITALS: BP 86/60; PULSE 66; RESP 20; TEMP 97.1; O2SAT 97
[2024-01-13] MEDS ORDERED: ACET650T58 PO (10:24)
[2024-01-13] MEDS ORDERED: AMOX-580 PO (10:24)
[2024-01-13] MEDS ORDERED: VANCOMYCIN LEVEL IV ONE (16:30)
== END 2024-01-13 15:00 | disposition home or self-care (01) | DRG 383 ==
LOC: ER 00:49 → ED HOLD 04:48 → ORTHO 4S 14:39
PROVIDERS: ADMIT Internal Medicine Sleep Medicine; ATTEND Internal Medicine
DX: A46 Erysipelas (principal); F15.10 Other stimulant abuse, uncomplicated; I10 Essential (primary) hypertension; J44.9 Chronic obstructive pulmonary disease, unspecified; Z91.041 Radiographic dye allergy status; Z79.899 Other long term (current) drug therapy; Z90.49 Acquired absence of other specified parts of digestive tract; Z87.442 Personal history of urinary calculi
CPT/HCPCS: 36415; 80048; 83036; 83605; 83735; 84145; 85025; 85651; 87040; 87081; 96365; 99285; G0378; J0696; J1650; J3370; J7030

== ENCOUNTER 2024-05-24 21:27 | Emergency (ER) | payer MEDICAID ==
[~2024-05-24] VITALS: Ht 182.9 cm; Wt 62.3 kg
[~2024-05-24 21:27] MED LIST changes: -CEFU500T66 PO; -LACT1CAP26 PO; +NO HOME MEDS; -ONDA4TAB12 PO; -ONDA8TAB13 PO; -PANT40TA54 PO
[2024-05-24 21:30] VITALS: BP 120/76; PULSE 74; RESP 18; TEMP 97.9; O2SAT 100
== END 2024-05-24 23:34 | disposition left against medical advice (07) ==
LOC: ER 21:27
DX: T23.101A Burn of first degree of right hand, unspecified site, initial encounter (principal); T23.171A Burn of first degree of right wrist, initial encounter; Z53.21 Procedure and treatment not carried out due to patient leaving prior to being seen by health care provider; Z91.041 Radiographic dye allergy status; X08.8XXA Exposure to other specified smoke, fire and flames, initial encounter; Y93.89 Activity, other specified; Y92.89 Other specified places as the place of occurrence of the external cause; Y99.8 Other external cause status

== ENCOUNTER 2024-09-05 02:24 | Inpatient (IN) | payer MEDICAID ==
[~2024-09-05] VITALS: Ht 182.9 cm; Wt 59.0 kg
[2024-09-05 03:04] LABS: BASOPHILS % (AUTO) 0.3 % (0-1); EOSINOPHILS # (AUTO) 0.5 X10'3 (0-0.9); EOSINOPHILS % (AUTO) 5.5 % (0-6); HEMATOCRIT 45.8 % (42.0-52.0); HEMOGLOBIN 16.1 g/dl (14.0-17.9); LYMPHOCYTES # (AUTO) 1.8 X10'3 (1.1-4.8); LYMPHOCYTES % (AUTO) 21.6 % (21-51); MEAN CORPUSCULAR HEMOGLOBIN 31.3 PG (27.0-31.0); MEAN CORPUSCULAR VOLUME 89.5 FL (78-98); MEAN PLATELET VOLUME 8.4 FL (7.4-10.4); MONOCYTES # (AUTO) 1.2 X10'3 (0-0.9); MONOCYTES % (AUTO) 14.3 % (2-12); NEUTROPHILS # (AUTO) 4.8 X10'3 (1.8-7.7); NEUTROPHILS % (AUTO) 58.3 % (42-75); PLATELET COUNT 204 X10'3 (140-440); RED BLOOD COUNT 5.12 X10'6 (4.70-6.10); RED CELL DISTRIBUTION WIDTH 13.3 % (11.5-14.5); WHITE BLOOD COUNT 8.3 X10'3 (4.5-11.0)
[2024-09-05 03:21] LABS: ALANINE AMINOTRANSFERASE 11 U/L (12-78); ALBUMIN 3.5 G/DL (3.4-5.0); ALBUMIN/GLOBULIN RATIO 0.8 (1.1-1.5); ALKALINE PHOSPHATASE 79 IU/L (46-116); ANION GAP 10 (8-16); ASPARTATE AMINO TRANSFERASE 11 U/L (10-37); BILIRUBIN,TOTAL 0.8 MG/DL (0.1-1.0); BLOOD UREA NITROGEN 14 MG/DL (7-18); BUN/CREATININE RATIO 18.9 (10.0-20.0); CALCIUM 8.6 MG/DL (8.5-10.1); CHLORIDE 101 MMOL/L (99-107); CREATININE 0.74 MG/DL (0.60-1.10); GLUCOSE 101 MG/DL (70-104); LIPASE 18 U/L (16-77); POTASSIUM 3.1 MMOL/L (3.5-5.1); SODIUM 133 MMOL/L (135-145); TOTAL CARBON DIOXIDE 21.7 MMOL/L (24-32); TOTAL PROTEIN 7.8 G/DL (6.4-8.2); eCRCL 85 ML/MIN; eGFR > 90 ML/MIN
[2024-09-05] MEDS: normal saline 1000ML IV soln IVB ONE (03:55)
[2024-09-05] MEDS: acetaminophen 1,000mg/100ml IV 100 ML IV ONE (03:58)
[2024-09-05 04:02] LABS: BILIRUBIN,URINE NEGATIVE (Neg); CLARITY,URINE SLIGHTLY CLOUDY (Clear); COLOR,URINE YELLOW (Yellow); GLUCOSE, URINE NEGATIVE (Neg); KETONES,URINE NEGATIVE (Neg); LEUKOCYTE ESTERASE ,URINE TRACE (Neg); NITRITES, URINE POSITIVE (Neg); OCCULT BLOOD,URINE TRACE-INTACT (Neg); PH,URINE 6.5 (4.8-8.0); PROTEIN,URINE NEGATIVE (Neg); UROBILINOGEN,URINE 0.2 E.U/dL (0.2-1.0)
[2024-09-05 04:10] LABS: UA COLLECTION TYPE URINAL
[2024-09-05 04:11] LABS: BACTERIA,URINE 3+ /HPF (Neg); RBC,URINE 0-2 /HPF (0-2); SQUAMOUS EPITHELIAL CELL,UR FEW /LPF (FEW); WBC,URINE 20-30 /HPF (0-4)
[2024-09-05] MEDS ORDERED: LOPE2CAP PO (05:11)
[2024-09-05] MEDS ORDERED: ONDA-245 PO (05:11)
[2024-09-05] MEDS: ondansetron/PF 4mg/2ml inj IV ONE ×2 (05:29→07:54)
[2024-09-05] MEDS: ketorolac trometh 15mg/ml vial 15 MG/ML ML IV ONE (05:29)
[2024-09-05] MEDS: POTASSIUM BICARB 20meq eff tab 20 MEQ TABLET.EFF PO ONE (05:33)
[2024-09-05] MEDS: CefTRIAXone/D5W-Rocephin 1gm 50 ML IV ONE (06:10)
[2024-09-05] MEDS: normal saline 1000ml 1,000 ML IV ONE (06:11)
[2024-09-05] MEDS: glycopyrrolate 0.2mg/ml inj IV ONE (06:59)
[2024-09-05] MEDS: dexamethasone sod phosphate 10mg/ml inj IV STA (07:03)
[2024-09-05] MEDS: ringers solution, lactated 1000ml IV soln IV ONE (07:03)
[2024-09-05] MEDS ORDERED: magnesium Cl slow-release 64mg tablet PO PRN (08:30)
[2024-09-05] MEDS ORDERED: ondansetron/PF 4mg/2ml inj IV PRN (08:30)
[2024-09-05] MEDS ORDERED: potassium Cl 40MEQ/1/2NS 520ml 520 ML IV PRN (08:30)
[2024-09-05] MEDS ORDERED: acetaminophen 325mg tablet PO PRN ×2 (08:30)
[2024-09-05] MEDS ORDERED: magnesium sulf-water 2g/50mL 50 ML IV PRN (08:30)
[2024-09-05] MEDS ORDERED: morphine 2 MG/ML inj. syringe IV PRN ×2 (08:30)
[2024-09-05] MEDS ORDERED: magnesium sulf-water 4G/100mL 100 ML IV PRN (08:30)
[2024-09-05] MEDS: normal saline 1000ml 1,000 ML IV SCH (09:12)
[2024-09-05] MEDS: metroNIDAZOLE-Flagyl 500mg/NS 100 ML IV SCH (09:12)
[2024-09-05] MEDS: diphenhydrAMINE 50 mg/ml inj IV ONE (11:22)
[2024-09-05] MEDS ORDERED: iohexol 300mg/ml 100ml inj. ONE (11:27)
[2024-09-05 18:00] VITALS: BP 116/69; PULSE 52; RESP 16; TEMP 98.7; O2SAT 95
[2024-09-05] MEDS: heparin, porcine 5000 units/ml vial SQ SCH (19:38)
[2024-09-05] MEDS: HYDROcodone/acetaminophen 10/325mg tab PO PRN (19:47)
[2024-09-05] MEDS: potassium Cl 20 mEq SR tablet PO PRN (19:57)
[2024-09-05 20:00] VITALS: RESP 13; O2SAT 95
[2024-09-05 22:00] VITALS: BP 96/51; PULSE 56; RESP 13; TEMP 98; O2SAT 95
[2024-09-06] MEDS: potassium Cl 20 mEq SR tablet PO PRN (00:01)
[2024-09-06] MEDS: mag hydrox/Alum hydrox/simeth 30ml oral suspension PO ONE (02:30)
[2024-09-06 04:15] VITALS: BP 88/46; PULSE 42
[2024-09-06] MEDS: normal saline 250ml IV soln 250 ML IV ONE (04:16)
[2024-09-06 05:05] LABS: BILIRUBIN,URINE NEGATIVE (Neg); CLARITY,URINE CLEAR (Clear); COLOR,URINE YELLOW (Yellow); GLUCOSE, URINE NEGATIVE (Neg); KETONES,URINE NEGATIVE (Neg); LEUKOCYTE ESTERASE ,URINE NEGATIVE (Neg); NITRITES, URINE POSITIVE (Neg); OCCULT BLOOD,URINE TRACE-INTACT (Neg); PROTEIN,URINE NEGATIVE (Neg); UROBILINOGEN,URINE 0.2 E.U/dL (0.2-1.0)
[2024-09-06 05:10] LABS: UA COLLECTION TYPE NON-SPECIFIED
[2024-09-06 05:11] LABS: BACTERIA,URINE 1+ /HPF (Neg); SQUAMOUS EPITHELIAL CELL,UR FEW /LPF (FEW)
[2024-09-06 05:12] LABS: RBC,URINE 0-2 /HPF (0-2)
[2024-09-06 05:47] LABS: URINE AMPHETAMINE SCREEN POSITIVE (Neg); URINE BARBITUATE SCREEN NEGATIVE (Neg); URINE BENZODIAZEPINES SCREEN NEGATIVE (Neg); URINE CANNABINOID SCREEN NEGATIVE (Neg); URINE COCAINE SCREEN NEGATIVE (Neg); URINE METHADONE SCREEN NEGATIVE (Neg); URINE OPIATE SCREEN POSITIVE (Neg); URINE PHENCYCLIDINE SCREEN NEGATIVE (Neg)
[2024-09-06 05:53] VITALS: BP 100/56; PULSE 55
[2024-09-06 06:00] VITALS: BP 88/50; PULSE 56; RESP 16; TEMP 97.7; O2SAT 97
[2024-09-06 06:14] LABS: BASOPHILS % (AUTO) 0.1 % (0-1); EOSINOPHILS % (AUTO) 0 % (0-6); HEMATOCRIT 37.5 % (42.0-52.0); HEMOGLOBIN 12.8 g/dl (14.0-17.9); LYMPHOCYTES # (AUTO) 1.3 X10'3 (1.1-4.8); LYMPHOCYTES % (AUTO) 12.4 % (21-51); MEAN CORPUSCULAR HGB CONC 34.1 g/dL (33.0-36.5); MEAN CORPUSCULAR VOLUME 90.9 FL (78-98); MEAN PLATELET VOLUME 9.3 FL (7.4-10.4); MONOCYTES % (AUTO) 9.8 % (2-12); NEUTROPHILS # (AUTO) 8.3 X10'3 (1.8-7.7); NEUTROPHILS % (AUTO) 77.7 % (42-75); PLATELET COUNT 182 X10'3 (140-440); RED BLOOD COUNT 4.12 X10'6 (4.70-6.10); RED CELL DISTRIBUTION WIDTH 13.6 % (11.5-14.5); WHITE BLOOD COUNT 10.7 X10'3 (4.5-11.0)
[2024-09-06 06:54] LABS: ALANINE AMINOTRANSFERASE 11 U/L (12-78); ALBUMIN 2.7 G/DL (3.4-5.0); ALBUMIN/GLOBULIN RATIO 0.8 (1.1-1.5); ALKALINE PHOSPHATASE 57 IU/L (46-116); ANION GAP 7 (8-16); ASPARTATE AMINO TRANSFERASE 13 U/L (10-37); BILIRUBIN,TOTAL 0.3 MG/DL (0.1-1.0); BLOOD UREA NITROGEN 11 MG/DL (7-18); BUN/CREATININE RATIO 16.7 (10.0-20.0); CALCIUM 7.7 MG/DL (8.5-10.1); CHLORIDE 108 MMOL/L (99-107); CREATININE 0.66 MG/DL (0.60-1.10); GLUCOSE 105 MG/DL (70-104); POTASSIUM 4.4 MMOL/L (3.5-5.1); SODIUM 139 MMOL/L (135-145); TOTAL CARBON DIOXIDE 23.9 MMOL/L (24-32); TOTAL PROTEIN 5.9 G/DL (6.4-8.2); eCRCL 96 ML/MIN; eGFR > 90 ML/MIN
[2024-09-06] MEDS ORDERED: CefTRIAXone 2gm/D5W 50ml BAG 50 ML IV SCH (08:00)
[2024-09-06] MEDS: CefTRIAXone 2gm/D5W 50ml BAG 50 ML IV SCH (08:22)
[2024-09-06 11:00] VITALS: BP 87/56; PULSE 53; RESP 17; TEMP 98.5; O2SAT 97
[2024-09-06] MEDS: pantoprazole 40mg Tablet.DR PO SCH (11:54)
[2024-09-06 16:00] LABS: ABG BASE EXCESS -0.6 mmol/L (-2.0-3.0); ABG HCO3 21.5 mmol/L (21.0-28.0); ABG OXYGEN SATURATION 96.2 % (94.0-98.0); ABG PCO2 (T) 27.9 mmHg (35.0-48.0); ABG PH (T) 7.504 (7.350-7.450); ABG PO2 (T) 72.9 mmHg (83.0-108.0); ALLEN'S TEST POSITIVE; FCOHb 0.5 % (0.5-1.5); FHHb 3.8 % (0.0-5.0); FMetHb 0.3 % (0.0-1.5); FO2Hb 95.4 % (94.0-98.0); MODE ROOM AIR; TOTAL HEMOGLOBIN 12.5 G/dl (13.5-17.5)
[2024-09-06 18:00] VITALS: BP 87/52; PULSE 64; RESP 18; TEMP 97.6; O2SAT 100
[2024-09-06] MEDS: HYDROcodone/acetaminophen 5mg/325mg tablet PO PRN (19:17)
[2024-09-06 22:00] VITALS: BP 96/60; PULSE 61; RESP 16; TEMP 98.6; O2SAT 94
[2024-09-07 06:00] VITALS: BP 84/51; PULSE 64; RESP 16; TEMP 98.3; O2SAT 91
[2024-09-07 06:29] LABS: BASOPHILS # (AUTO) 0.1 X10'3 (0-0.2); BASOPHILS % (AUTO) 0.5 % (0-1); EOSINOPHILS # (AUTO) 0.6 X10'3 (0-0.9); HEMATOCRIT 38.2 % (42.0-52.0); HEMOGLOBIN 12.9 g/dl (14.0-17.9); LYMPHOCYTES # (AUTO) 2.8 X10'3 (1.1-4.8); LYMPHOCYTES % (AUTO) 25.7 % (21-51); MEAN CORPUSCULAR HEMOGLOBIN 30.8 PG (27.0-31.0); MEAN CORPUSCULAR HGB CONC 33.7 g/dL (33.0-36.5); MEAN CORPUSCULAR VOLUME 91.7 FL (78-98); MEAN PLATELET VOLUME 8.9 FL (7.4-10.4); MONOCYTES # (AUTO) 1.1 X10'3 (0-0.9); MONOCYTES % (AUTO) 10.1 % (2-12); NEUTROPHILS # (AUTO) 6.5 X10'3 (1.8-7.7); NEUTROPHILS % (AUTO) 58.7 % (42-75); PLATELET COUNT 166 X10'3 (140-440); RED BLOOD COUNT 4.17 X10'6 (4.70-6.10); RED CELL DISTRIBUTION WIDTH 13.9 % (11.5-14.5)
[2024-09-07 06:52] LABS: ALANINE AMINOTRANSFERASE 10 U/L (12-78); ALBUMIN 2.8 G/DL (3.4-5.0); ALBUMIN/GLOBULIN RATIO 0.9 (1.1-1.5); ALKALINE PHOSPHATASE 56 IU/L (46-116); ANION GAP 7 (8-16); ASPARTATE AMINO TRANSFERASE 13 U/L (10-37); BILIRUBIN,TOTAL 0.2 MG/DL (0.1-1.0); BLOOD UREA NITROGEN 10 MG/DL (7-18); BUN/CREATININE RATIO 14.3 (10.0-20.0); CALCIUM 7.9 MG/DL (8.5-10.1); CHLORIDE 109 MMOL/L (99-107); GLUCOSE 81 MG/DL (70-104); POTASSIUM 3.9 MMOL/L (3.5-5.1); SODIUM 140 MMOL/L (135-145); TOTAL CARBON DIOXIDE 24.5 MMOL/L (24-32); TOTAL PROTEIN 5.9 G/DL (6.4-8.2); eCRCL 90 ML/MIN; eGFR > 90 ML/MIN
[2024-09-07 08:00] VITALS: RESP 16; O2SAT 91; O2SAT 96
[2024-09-07 10:00] VITALS: BP 92/59; PULSE 67; RESP 18; TEMP 98.1; O2SAT 94
[2024-09-07] MEDS ORDERED: LEVO-65 PO (12:27)
[2024-09-07 12:43] VITALS: RESP 16; O2SAT 99
== END 2024-09-07 13:50 | disposition home or self-care (01) | DRG 249 ==
LOC: ER 02:25 → ED HOLD 08:37 → ORTHO 4S 17:30
PROVIDERS: ADMIT Internal Medicine; ATTEND Internal Medicine
PROC: BW211ZZ Computerized Tomography (CT Scan) of Abdomen and Pelvis using Low Osmolar Contrast (ICD-10-PCS; principal; 2024-09-05)
DX: K52.9 Noninfective gastroenteritis and colitis, unspecified (principal); E87.1 Hypo-osmolality and hyponatremia; E87.6 Hypokalemia; F17.200 Nicotine dependence, unspecified, uncomplicated; F15.129 Other stimulant abuse with intoxication, unspecified; Z20.822 Contact with and (suspected) exposure to COVID-19; I10 Essential (primary) hypertension; J44.9 Chronic obstructive pulmonary disease, unspecified; Z90.49 Acquired absence of other specified parts of digestive tract; Z91.041 Radiographic dye allergy status
CPT/HCPCS: 36415; 36600; 74176; 74177; 80053; 80305; 81001; 82803; 83605; 83690; 84145; 84484; 85018; 85025; 87040; 87081; 87088; 87502; 87503; 87811; 93005; 97116; 97161; 99285; A4615; G0378; J0131; J0696; J1100; J1200; J1644; J1885; J2405; J3490; J7030; J7040; J7050; J7120; Q9967